=== PATIENT | female | born 1980 | race Caucasian/White ===

== ENCOUNTER 2016-02-25 15:04 | Emergency (ER) | payer SELFPAY ==
[~2016-02-25] VITALS: Ht 162.6 cm; Wt 59.0 kg
[~2016-02-25 15:04] MED LIST: CHLO10CA2 PO; RANI150T PO; TRAM50TA PO; ZOFR4TAB3 SL
[2016-02-25 15:07] VITALS: BP 140/49; PULSE 99; RESP 16; TEMP 98.4; O2SAT 96
[2016-02-25] MEDS ORDERED: IBUPROFEN 600 MG TAB PO ONE (15:30)
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
--- NOTE | 2016-02-25 15:51 | RADHPO ---
EXAM DATE/TIME: 02/25/2016 15:30 [facility] COMPARISON: No previous studies available for comparison. INDICATIONS : Fall last night, cephalgia. RADIATION DOSE: 64.40 CTDIvol (mGy) MEDICAL HISTORY : Hypertension. SURGICAL HISTORY : None. ENCOUNTER: Initial ACUITY: 1 day PAIN SCALE: 5/10 LOCATION: Bilateral head TECHNIQUE: Multiple contiguous axial images were obtained of the head. Using automated exposure control and adj ustment of the mA and/or kV according to patient size, radiation dose was kept as low as reasonably a chievable to obtain optimal diagnostic quality images. FINDINGS: CEREBRUM: The ventricles are normal for age. No evidence of midline shift, mass lesion, hemorrhage or acute in farction. No extra-axial fluid collections are seen. POSTERIOR FOSSA: The cerebellum and brainstem are intact. The 4th ventricle is midline. The cerebellopontine angle i s unremarkable. EXTRACRANIAL: The visualized portion of the orbits is intact. SKULL: The calvaria is intact. No evidence of skull fracture. Minimal ethmoid sinus disease is evident. CONCLUSION: 1. Negative for acute process. Keyur León MD FACR on February 25, 2016 at 15:49 Board Certified Radiologist. This report was verified electronically.
--- NOTE | 2016-02-25 16:33 | RADHPO ---
EXAM DATE/TIME: 02/25/2016 15:47 [facility] COMPARISON: No previous studies available for comparison. INDICATIONS : Fell on back last night MEDICAL HISTORY : None. SURGICAL HISTORY : None. ENCOUNTER: Initial ACUITY: 1 day PAIN SCORE: 10/10 LOCATION: Bilateral low back FINDINGS: There is minimal loss of disc space height at L5-S1. The remainder of the disc spaces and vertebral body heights are well preserved. Alignment is anatomic. CONCLUSION: Minimal loss of disc space height at L5-S1. Keyur León MD FACR on February 25, 2016 at 16:25 Board Certified Radiologist. This report was verified electronically.
== END 2016-02-25 17:05 | disposition home or self-care (01) ==
LOC: PHEFT 15:04
DX: S39.012A Strain of muscle, fascia and tendon of lower back, initial encounter (principal); F10.129 Alcohol abuse with intoxication, unspecified; I10 Essential (primary) hypertension; J45.909 Unspecified asthma, uncomplicated; W03.XXXA Other fall on same level due to collision with another person, initial encounter; Y93.89 Activity, other specified; Y92.89 Other specified places as the place of occurrence of the external cause
CPT/HCPCS: 70450; 72100

== ENCOUNTER 2016-06-13 19:40 | Emergency (ER) | payer SELFPAY ==
[~2016-06-13] VITALS: Ht 170.2 cm; Wt 65.0 kg
[2016-06-13 19:43] VITALS: BP 136/90; PULSE 110; RESP 14; TEMP 98.7; O2SAT 97
[2016-06-13 21:10] VITALS: BP 133/86; PULSE 98; RESP 14; O2SAT 97
[2016-06-13] MEDS ORDERED: ALUMINUM/MAGNESIUM/SIMETH 30 ML CUP PO ONE (21:15)
[2016-06-13] MEDS ORDERED: SODIUM CHLORIDE 0.9% FLUSH 10 ML FLUSH IV FLUSH PRN (21:15)
[2016-06-13] MEDS ORDERED: LIDOCAINE VISCOUS 2% SOLN 15 ML UDC PO ONE (21:15)
[2016-06-13] MEDS ORDERED: ONDANSETRON HCL 4 MG/2 ML VIAL IVP ONE (21:15)
[2016-06-13] MEDS ORDERED: HYDROmorphone HCL PF 1 MG/ML VIAL IV PUSH ONE (21:15)
[2016-06-13] MEDS ORDERED: SODIUM CHLOR 0.9% 1000 ML INJ 1,000 ML IV SCH (21:15)
--- NOTE | 2016-06-13 21:18 | PD ---
HPI Chief Complaint: Abdominal Pain Time Seen by Provider: 21:11 Travel History International Travel<30 days: No Contact w/Intl Traveler<30days: No Traveled to known affect area: No History of Present Illness HPI 35-year-old female here for evaluation of epigastric abdominal pain and possible pancreatitis. She denies history of hepatitis C and alcoholism. She states that she had stopped drinking for quite some time, however about a week ago had an , and started drinking again. She states that she drinks a few vodka drinks a day. History of cholecystectomy. Pain described as sharp, constant, epigastric, worse with movement and palpation. She feels nauseous but has not vomited. No fever. PFSH Past Medical History Asthma: Yes Anxiety: Yes Depression: No Heart Rhythm Problems: No Cancer: No Cardiovascular Problems: Yes Diabetes: No Endocrine: No Gastrointestinal Disorders: Yes Genitourinary: Yes Hepatitis: Yes (hepatitis C) Hypertension: Yes Immune Disorder: No Musculoskeletal: No Neurologic: No Psychiatric: Yes Reproductive: Yes ("STILLBORN AT 8 MONTHS: FIRST " CERCLAGE: 21 WEEKS , 2ND IUP) Respiratory: Yes Pancreatitis: Yes Thyroid Disease: No Ulcer: Yes : 2 Para: 1 Miscarriage: 1 Dilation and Curettage (D&C): Yes Past Surgical History Abdominal Surgery: Yes (PANCREATIC STENT, CHOLECYSTECTOMY) Cardiac Surgery: No Cholecystectomy: Yes Ear Surgery: No Endocrine Surgery: No Eye Surgery: No Genitourinary Surgery: No Gynecologic Surgery: Yes (D &C) Oral Surgery: No Thoracic Surgery: Yes (BREAST IMPLANTS) Other Surgery: Yes (breast implants, pancreatic stent ) Social History Alcohol Use: Yes (daily ) Tobacco Use: No Substance Use: No Allergies-Medications (Allergen,Severity, Reaction): Coded Allergies: Amoxicillin (Verified Allergy, Intermediate, Rash, 06/13/16) Celexa (Verified Allergy, Intermediate, Rash, 06/13/16) Morphine (Verified Allergy, Intermediate, Rash, 06/13/16) Reported Meds & Prescriptions Reported Meds & Active Scripts Active No Active Prescriptions or Reported Medications Review of Systems Except as stated in HPI: all other systems reviewed are Neg Physical Exam Narrative GENERAL: Well-developed, well-nourished, comfortable, no acute distress. SKIN: Focused skin assessment warm/dry. No rash. HEAD: Atraumatic. Normocephalic. EYES: Pupils equal and round. No scleral icterus. No injection or drainage. ENT: Mucous membranes pink and moist. NECK: Trachea midline. No JVD. CARDIOVASCULAR: Regular rate and rhythm. No murmur appreciated. RESPIRATORY: No accessory muscle use. Clear to auscultation. Breath sounds equal bilaterally. GASTROINTESTINAL: Abdomen soft, nondistended. Moderate epigastric tenderness without peritoneal signs. Rest of abdomen is soft and nontender. Normal bowel sounds. MUSCULOSKELETAL: No obvious deformities. No clubbing. No cyanosis. No edema. NEUROLOGICAL: Awake and alert. No obvious cranial nerve deficits. Motor grossly within normal limits. Normal speech. PSYCHIATRIC: Appropriate mood and affect; insight and judgment normal. Data Data Last Documented VS Vital Signs Date Time Temp Pulse Resp B/P Pulse Ox O2 Delivery O2 Flow Rate FiO2 06/13/16 21:10 98 14 133/86 97 Room Air 06/13/16 19:43 98.7 Orders Complete Blood Count With Diff (06/13/16 21:15) Comprehensive Metabolic Panel (06/13/16 21:15) Lipase (06/13/16 21:15) Prothrombin Time / Inr (Pt) (06/13/16 21:15) Act Partial Throm Time (Ptt) (06/13/16 21:15) Urinalysis - C+S If Indicated (06/13/16 21:15) Iv Access Insert/Monitor (06/13/16 21:15) Ecg Monitoring (06/13/16 21:15) Oximetry (06/13/16 21:15) Ondansetron Inj (Zofran Inj) (06/13/16 21:15) Sodium Chlor 0.9% 1000 Ml Inj (Ns 1000 M (06/13/16 21:15) Sodium Chloride 0.9% Flush (Ns Flush) (06/13/16 21:15) Al-Mag Hy-Si 40-40-4 Mg/Ml Liq (Mag-Al P (06/13/16 21:15) Lidocaine 2% Viscous (Xylocaine 2% Visco (06/13/16 21:15) Hydromorphone Pf Inj (Dilaudid Pf Inj) (06/13/16 21:15) Alcohol (Ethanol) (06/13/16 21:16) Electrocardiogram (06/13/16 21:17) Ckmb (Isoenzyme) Profile (06/13/16 21:17) Troponin I (06/13/16 21:17) CKMB (06/13/16 21:34) CKMB% (06/13/16 21:34) Labs Laboratory Tests Test 06/13/16 06/13/16 21:34 22:50 White Blood Count 10.2 TH/MM3 Red Blood Count 4.47 MIL/MM3 Hemoglobin 14.5 GM/DL Hematocrit 42.3 % Mean Corpuscular Volume 94.6 FL Mean Corpuscular Hemoglobin 32.4 PG Mean Corpuscular Hemoglobin 34.2 % Concent Red Cell Distribution Width 13.4 % Platelet Count 334 TH/MM3 Mean Platelet Volume 6.6 FL Neutrophils (%) (Auto) 54.5 % Lymphocytes (%) (Auto) 34.9 % Monocytes (%) (Auto) 6.0 % Eosinophils (%) (Auto) 3.6 % Basophils (%) (Auto) 1.0 % Neutrophils # (Auto) 5.6 TH/MM3 Lymphocytes # (Auto) 3.6 TH/MM3 Monocytes # (Auto) 0.6 TH/MM3 Eosinophils # (Auto) 0.4 TH/MM3 Basophils # (Auto) 0.1 TH/MM3 CBC Comment DIFF FINAL Differential Comment Prothrombin Time 10.2 SEC Prothromb Time International 0.9 RATIO Ratio Activated Partial 24.4 SEC Thromboplast Time Urine Color YELLOW Urine Turbidity CLEAR Urine pH 5.5 Urine Specific Ellis 1.021 Urine Protein NEG mg/dL Urine Glucose (UA) NEG mg/dL Urine Ketones NEG mg/dL Urine Occult Blood NEG Urine Nitrite NEG Urine Bilirubin NEG Urine Urobilinogen LESS THAN 2.0 MG/DL Urine Leukocyte Esterase NEG Urine RBC LESS THAN 1 /hpf Urine WBC LESS THAN 1 /hpf Urine Squamous Epithelial <1 /hpf Cells Urine Mucus FEW /lpf Microscopic Urinalysis Comment CULT NOT INDICATED Total Creatine Kinase 250 U/L Creatine Kinase MB 3.7 NG/ML Creatine Kinase MB % 1.5 % Troponin I LESS THAN 0.02 NG/ML Ethyl Alcohol Level 280 MG/DL Sodium Level 143 MEQ/L Potassium Level 4.6 MEQ/L Chloride Level 108 MEQ/L Carbon Dioxide Level 24.3 MEQ/L Anion Gap 11 MEQ/L Blood Urea Nitrogen 15 MG/DL Creatinine 0.83 MG/DL Estimat Glomerular Filtration 77 ML/MIN Rate Random Glucose 99 MG/DL Calcium Level 8.0 MG/DL Total Bilirubin 0.6 MG/DL Aspartate Amino Transf 384 U/L (AST/SGOT) Alanine Aminotransferase 399 U/L (ALT/SGPT) Alkaline Phosphatase 86 U/L Total Protein 7.5 GM/DL Albumin 3.5 GM/DL Lipase 158 U/L [facility] Medical Decision Making Medical Screen Exam Complete: Yes Emergency Medical Condition: Yes Medical Record Reviewed: Yes Differential Diagnosis Pancreatitis, peptic ulcer disease, hepatobiliary disease, gastritis, ACS Narrative Course Vital signs reviewed. CBC is remarkable. CMP is remarkable for AST 384, ALT 399 which is close to her baseline. She has history of hepatitis C as well as alcohol abuse. Cardiac enzymes are negative. Lipase is 158. Patient was made aware of all findings. She tells me she is feeling a lot better after receiving GI cocktail, IV Protonix, IV morphine, and a liter of normal saline. She tells me she wants to be discharged home. 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 She is requesting a medication that might help her through alcohol withdrawals. I told her I would give her prescription for Librium. I do not believe her pain is cardiac in nature. Her EKG is nonischemic. This is most likely alcoholic gastritis. She is stable for discharge home with outpatient follow- up with a primary care physician this week. She was informed on when to return to the emergency department. She verbalizes understanding and agreement with plan. Diagnosis Primary Impression: Gastritis Qualified Code: K29.20 - Acute alcoholic gastritis without hemorrhage Additional Impressions: Alcohol intoxication Qualified Code: F10.120 - Alcohol intoxication, uncomplicated Transaminitis Referrals: Primary Care Physician 3 days Additional Instructions: Follow-up with a primary care physician this week. Return to the emergency department for worsening symptoms or any other concerns. Scripts Chlordiazepoxide 10 Mg Cap10 Mg PO QID PRN (Anxiety) #30 CAP Ref 0 Prov:Magdiel Stokes MD 06/13/16 Ondansetron Odt (Zofran Odt)4 Mg Tab4 Mg SL Q6HR PRN (Nausea/Vomiting) #30 TAB Ref 0 Prov:Magdiel Stokes MD 06/13/16 Pantoprazole (Protonix)40 Mg Tab40 Mg PO DAILY #30 TAB Ref 3 Prov:Magdiel Stokes MD 06/13/16 Disposition: 01 DISCHARGE HOME Condition: Stable Magdiel Stokes MD June 13, 2016 21:18
[2016-06-13 22:07] LABS: BLOOD, URINE NEG (NEG); COMMENT (UR) CULT NOT INDICATED; CULTURE IF INDICATED CULT NOT INDICATED; GLUCOSE,URINE NEG (NEG); KETONE, URINE NEG (NEG); MUCUS URINE FEW /lpf (OCC); NITRITE,URINE NEG (NEG); PH, URINE 5.5 (5.0-8.5); SQUAMOUS EPITHELIAL CELL URINE <1 /hpf (0-5); URINE COLOR YELLOW (YELLW/STRAW)
[2016-06-13 22:08] LABS: AUTOMATED NEUTROPHIL # 5.6 TH/MM3 (1.8-7.7); BASOPHIL # 0.1 TH/MM3 (0-0.2); EOSINOPHIL # 0.4 TH/MM3 (0-0.4); EOSINOPHIL % 3.6 % (0.0-4.0); HEMATOCRIT 42.3 % (35.0-46.0); HEMO FLAGS DIFF FINAL; LYMPH % 34.9 % (9.0-44.0); LYMPHOCYTE # 3.6 TH/MM3 (1.0-4.8); MEAN CELL VOLUME 94.6 FL (80.0-100.0); MEAN CORPUSCULAR HEMOGLOBIN 32.4 PG (27.0-34.0); MEAN CORPUSCULAR HGB CONC 34.2 % (32.0-36.0); NEUT % 54.5 % (16.0-70.0); PLATELET COUNT 334 TH/MM3 (150-450); RED BLOOD COUNT 4.47 MIL/MM3 (4.00-5.30); RED CELL DISTRIBUTION WIDTH 13.4 % (11.6-17.2); WHITE BLOOD COUNT 10.2 TH/MM3 (4.0-11.0)
[2016-06-13 22:21] LABS: APTT (PATIENT) 24.4 SEC (24.3-30.1); INTERNATIONAL NORMALIZED RATIO 0.9 RATIO; PROTHROMBIN TIME - PATIENT 10.2 SEC (9.8-11.6)
[2016-06-13 23:19] LABS: ALKALINE PHOSPHATASE 86 U/L (45-117); TOTAL BILIRUBIN ADULT 0.6 MG/DL (0.2-1.0)
[2016-06-13 23:20] LABS: ALT (GPT) 399 U/L (10-53); ANION GAP 11 MEQ/L (5-15); AST (GOT) 384 U/L (15-37); BICARBONATE 24.3 MEQ/L (21.0-32.0); BLOOD UREA NITROGEN 15 MG/DL (7-18); CHLORIDE 108 MEQ/L (98-107); GLOMERULAR FILTRATION RATE 77 ML/MIN (>89); POTASSIUM 4.6 MEQ/L (3.5-5.1); SODIUM (NA) 143 MEQ/L (136-145)
[2016-06-13 23:30] LABS: CREATINE KINASE 250 U/L (26-192)
[2016-06-13 23:43] LABS: CKMB 3.7 NG/ML (0.5-3.6)
[2016-06-13] MEDS ORDERED: PROT40TA PO (23:56)
[2016-06-13] MEDS ORDERED: CHLO10CA2 PO (23:56)
[2016-06-13] MEDS ORDERED: ZOFR4TAB3 SL (23:56)
--- NOTE | 2016-06-14 15:31 | EKG ---
Date Performed: 06/13/2016 Time Performed: 22:01:27 PTAGE: 35 years EKG: Sinus rhythm NORMAL ECG NO PREVIOUS TRACING DOCTOR: Sylvain Branham Interpretating Date/Time 06/14/2016 15:27:50
== END 2016-06-14 00:23 | disposition home or self-care (01) ==
LOC: NEPE 19:40
DX: K29.20 Alcoholic gastritis without bleeding (principal); F10.120 Alcohol abuse with intoxication, uncomplicated; R74.0 Nonspecific elevation of levels of transaminase and lactic acid dehydrogenase [LDH]; J45.909 Unspecified asthma, uncomplicated; I10 Essential (primary) hypertension
CPT/HCPCS: 80053; 80307; 81001; 82550; 82552; 83690; 84484; 85025; 85610; 85730; 93005; 96361; 96374; 96375; 99284; J1170; J2405; J7030

== ENCOUNTER 2016-06-20 11:03 | Emergency (ER) | payer SELFPAY ==
[~2016-06-20] VITALS: Ht 162.6 cm; Wt 59.0 kg
[~2016-06-20 11:03] MED LIST changes: +PROT40TA PO; -RANI150T PO; -TRAM50TA PO
[2016-06-20 11:06] VITALS: BP 147/91; PULSE 93; RESP 16; TEMP 97.6
[2016-06-20] MEDS ORDERED: SODIUM CHLOR 0.9% 1000 ML INJ 1,000 ML IV SCH (11:26)
--- NOTE | 2016-06-20 11:29 | PD ---
HPI Chief Complaint: GI Complaint Time Seen by Provider: 11:29 Travel History International Travel<30 days: No Contact w/Intl Traveler<30days: No Traveled to known affect area: No History of Present Illness HPI 35-year-old female presents to the emergency department for evaluation of vomiting and epigastric pain. States pain is constant, sharp, burning. Patient has long-standing history of alcohol dependence. Patient states she did drink alcohol today to help with her abdominal pain. She states she has been vomiting and she noticed blood in it today and yesterday. Denies any recent illnesses, fever, or chills. Denies any chest tightness. No difficulty breathing. Is requesting Dilaudid by name for her epigastric pain. PFSH Past Medical History Asthma: Yes Anxiety: Yes Depression: No Heart Rhythm Problems: No Cancer: No Cardiovascular Problems: Yes Diabetes: No Endocrine: No Gastrointestinal Disorders: Yes Genitourinary: Yes Hepatitis: Yes (hepatitis C) Hypertension: Yes Immune Disorder: No Musculoskeletal: No Neurologic: No Psychiatric: Yes Reproductive: Yes ("STILLBORN AT 8 MONTHS: FIRST " CERCLAGE: 21 WEEKS , 2ND IUP) Respiratory: Yes Immunizations Current: Yes Pancreatitis: Yes Thyroid Disease: No Ulcer: Yes ?: Unknown : 3 Para: 1 Miscarriage: 1 : 1 Dilation and Curettage (D&C): Yes (05/2016) Past Surgical History Abdominal Surgery: Yes (PANCREATIC STENT(REMOVED), CHOLECYSTECTOMY) Cardiac Surgery: No Cholecystectomy: Yes Ear Surgery: No Endocrine Surgery: No Eye Surgery: No Genitourinary Surgery: No Gynecologic Surgery: Yes (D &C) Oral Surgery: No Thoracic Surgery: Yes (BREAST IMPLANTS) Other Surgery: Yes (breast implants, pancreatic stent ) Social History Alcohol Use: Yes Tobacco Use: Yes Substance Use: No Allergies-Medications (Allergen,Severity, Reaction): Coded Allergies: Amoxicillin (Verified Allergy, Intermediate, Rash, 06/13/16) Celexa (Verified Allergy, Intermediate, Rash, 06/13/16) Morphine (Verified Allergy, Intermediate, Rash, 06/13/16) Reported Meds & Prescriptions Reported Meds & Active Scripts Active Chlordiazepoxide (Chlordiazepoxide HCl) 10 Mg Cap 10 Mg PO QID PRN Zofran Odt (Ondansetron Odt) 4 Mg Tab 4 Mg SL Q6HR PRN Protonix (Pantoprazole Sodium) 40 Mg Tab 40 Mg PO DAILY Review of Systems ROS Limitations: Intoxication Except as stated in HPI: all other systems reviewed are Neg Physical Exam Exam Limitations: Intoxication Narrative GENERAL: Tearful female patient, ambulatory and in no acute distress SKIN: Focused skin assessment warm/dry. HEAD: Atraumatic. Normocephalic. EYES: Pupils equal and round. No scleral icterus. No injection or drainage. ENT: No nasal bleeding or discharge. Mucous membranes pink and moist. NECK: Trachea midline. No JVD. CARDIOVASCULAR: Regular rate and rhythm. No murmur appreciated. RESPIRATORY: No accessory muscle use. Clear to auscultation. Breath sounds equal bilaterally. GASTROINTESTINAL: Abdomen soft, non-tender, nondistended. Hepatic and splenic margins not palpable. MUSCULOSKELETAL: No obvious deformities. No clubbing. No cyanosis. No edema. NEUROLOGICAL: Awake and alert. No obvious cranial nerve deficits. Motor grossly within normal limits. Normal speech. Data Data Last Documented VS Vital Signs Date Time Temp Pulse Resp B/P Pulse Ox O2 Delivery O2 Flow Rate FiO2 06/20/16 13:25 77 16 141/75 100 06/20/16 11:06 97.6 Orders Complete Blood Count With Diff (06/20/16:) Comprehensive Metabolic Panel (06/20/16:) Lipase (06/20/16:) Prothrombin Time / Inr (Pt) (06/20/16:) Act Partial Throm Time (Ptt) (06/20/16 11:) Urinalysis - C+S If Indicated (06/20/16:) Iv Access Insert/Monitor (06/20/16:) Ecg Monitoring (06/20/16:) Oximetry (06/20/16:) Ondansetron Inj (Zofran Inj) (06/20/16 11:30) Sodium Chlor 0.9% 1000 Ml Inj (Ns 1000 M (06/20/16:) Sodium Chloride 0.9% Flush (Ns Flush) (06/20/16 11:30) Al-Mag Hy-Si 40-40-4 Mg/Ml Liq (Mag-Al P (06/20/16 11:30) Lidocaine 2% Viscous (Xylocaine 2% Visco (06/20/16 11:30) Ed Urine Pregnancytest Poc (06/20/16 11:26) Pantoprazole Inj (Protonix Inj) (06/20/16 11:30) Alcohol (Ethanol) (06/20/16 11:29) Labs Laboratory Tests Test 06/20/16 06/20/16 11:14 11:30 White Blood Count 4.9 TH/MM3 Red Blood Count 4.36 MIL/MM3 Hemoglobin 14.1 GM/DL Hematocrit 40.6 % Mean Corpuscular Volume 92.9 FL Mean Corpuscular Hemoglobin 32.3 PG Mean Corpuscular Hemoglobin 34.8 % Concent Red Cell Distribution Width 13.4 % Platelet Count 245 TH/MM3 Mean Platelet Volume 6.8 FL Neutrophils (%) (Auto) 45.7 % Lymphocytes (%) (Auto) 33.9 % Monocytes (%) (Auto) 11.6 % Eosinophils (%) (Auto) 6.7 % Basophils (%) (Auto) 2.1 % Neutrophils # (Auto) 2.3 TH/MM3 Lymphocytes # (Auto) 1.7 TH/MM3 Monocytes # (Auto) 0.6 TH/MM3 Eosinophils # (Auto) 0.3 TH/MM3 Basophils # (Auto) 0.1 TH/MM3 CBC Comment DIFF FINAL Differential Comment Prothrombin Time 10.4 SEC Prothromb Time International 0.9 RATIO Ratio Activated Partial 27.6 SEC Thromboplast Time Sodium Level 142 MEQ/L Potassium Level 3.8 MEQ/L Chloride Level 105 MEQ/L Carbon Dioxide Level 27.7 MEQ/L Anion Gap 9 MEQ/L Blood Urea Nitrogen 10 MG/DL Creatinine 0.68 MG/DL Estimat Glomerular Filtration 97 ML/MIN Rate Random Glucose 87 MG/DL Calcium Level 8.7 MG/DL Total Bilirubin 1.8 MG/DL Aspartate Amino Transf 519 U/L (AST/SGOT) Alanine Aminotransferase 390 U/L (ALT/SGPT) Alkaline Phosphatase 102 U/L Total Protein 7.6 GM/DL Albumin 3.8 GM/DL Lipase 129 U/L Ethyl Alcohol Level 271 MG/DL Urine Color YELLOW Urine Turbidity CLEAR Urine pH 7.0 Urine Specific [place] 1.006 Urine Protein NEG mg/dL Urine Glucose (UA) NEG mg/dL Urine Ketones NEG mg/dL Urine Occult Blood NEG Urine Nitrite NEG Urine Bilirubin NEG Urine Urobilinogen 2.0 MG/DL Urine Leukocyte Esterase NEG Urine WBC LESS THAN 1 /hpf Urine Squamous Epithelial 1 /hpf Cells Microscopic Urinalysis Comment CULT NOT INDICATED MDM Medical Decision Making Medical Screen Exam Complete: Yes Emergency Medical Condition: Yes Medical Record Reviewed: Yes Differential Diagnosis Gastritis versus esophageal varices versus abdominal pain versus liver disease versus electrolyte abnormality versus intoxication Narrative Course 35-year-old female presents to the emergency department for evaluation. Patient appears intoxicated. She is tearful. Her abdominal exam is benign. Patient has not vomited since being in the emergency department. I requested if she does that any sample be Hemoccult tested however the patient does not vomit while here. CBC is without acute concern. CMP is with total bilirubin 1.8, AST 519, ALT 390. EtOH is 270 This is an increase from previous however the patient has had elevated-like pattern. This is likely secondary to chronic alcohol abuse and I spoke in depth with the patient about the risk of her continued drinking. I discussed the patient my attending physician Dr. Neumann. The patient will be discharged home to follow-up with primary care provider area she is encouraged to seek gastroenterology evaluation. She agrees to return immediately with any acute worsening of symptoms. 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 Additional Impressions: Epigastric pain Acute alcoholic liver disease Transaminitis Referrals: [facility] (Out patient) [facility] Primary Care Physician Patient Instructions: Alcohol Dependence (ED), Cirrhosis (ED), General Instructions Additional Instructions: It is important that you stop drinking alcohol Utilize outpatient resources to assist in stopping Follow-up with a primary care provider Continue Protonix as already prescribed Return immediately with any acute worsening of symptoms Med/Other Pt SpecificInfo: No Change to Meds Disposition: 01 DISCHARGE HOME Condition: Stable Altamirano,Emily JOYNER June 20, 2016 11:29
[2016-06-20] MEDS ORDERED: SODIUM CHLORIDE 0.9% FLUSH 10 ML FLUSH IV FLUSH PRN (11:30)
[2016-06-20] MEDS ORDERED: LIDOCAINE VISCOUS 2% SOLN 15 ML UDC PO ONE (11:30)
[2016-06-20] MEDS ORDERED: PANTOPRAZOLE SODIUM 40 MG VIAL IV PUSH ONE (11:30)
[2016-06-20] MEDS ORDERED: ALUMINUM/MAGNESIUM/SIMETH 30 ML CUP PO ONE (11:30)
[2016-06-20] MEDS ORDERED: ONDANSETRON HCL 4 MG/2 ML VIAL IVP ONE (11:30)
[2016-06-20 11:37] VITALS: O2SAT 100
[2016-06-20 12:03] LABS: AUTOMATED NEUTROPHIL # 2.3 TH/MM3 (1.8-7.7); BASOPHIL # 0.1 TH/MM3 (0-0.2); BASOPHIL % 2.1 % (0.0-2.0); EOSINOPHIL # 0.3 TH/MM3 (0-0.4); EOSINOPHIL % 6.7 % (0.0-4.0); HEMATOCRIT 40.6 % (35.0-46.0); HEMO FLAGS DIFF FINAL; LYMPH % 33.9 % (9.0-44.0); LYMPHOCYTE # 1.7 TH/MM3 (1.0-4.8); MEAN CELL VOLUME 92.9 FL (80.0-100.0); MEAN CORPUSCULAR HEMOGLOBIN 32.3 PG (27.0-34.0); MEAN CORPUSCULAR HGB CONC 34.8 % (32.0-36.0); MONO % 11.6 % (0.0-8.0); NEUT % 45.7 % (16.0-70.0); PLATELET COUNT 245 TH/MM3 (150-450); RED BLOOD COUNT 4.36 MIL/MM3 (4.00-5.30); RED CELL DISTRIBUTION WIDTH 13.4 % (11.6-17.2); WHITE BLOOD COUNT 4.9 TH/MM3 (4.0-11.0)
[2016-06-20 12:09] LABS: BLOOD, URINE NEG (NEG); COMMENT (UR) CULT NOT INDICATED; CULTURE IF INDICATED CULT NOT INDICATED; GLUCOSE,URINE NEG (NEG); KETONE, URINE NEG (NEG); NITRITE,URINE NEG (NEG); SQUAMOUS EPITHELIAL CELL URINE 1 /hpf (0-5); URINE COLOR YELLOW (YELLW/STRAW)
[2016-06-20 12:14] LABS: APTT (PATIENT) 27.6 SEC (24.3-30.1); INTERNATIONAL NORMALIZED RATIO 0.9 RATIO; PROTHROMBIN TIME - PATIENT 10.4 SEC (9.8-11.6)
[2016-06-20 12:23] LABS: ALT (GPT) 390 U/L (10-53); ANION GAP 9 MEQ/L (5-15); AST (GOT) 519 U/L (15-37); BICARBONATE 27.7 MEQ/L (21.0-32.0); BLOOD UREA NITROGEN 10 MG/DL (7-18); CHLORIDE 105 MEQ/L (98-107); GLOMERULAR FILTRATION RATE 97 ML/MIN (>89); POTASSIUM 3.8 MEQ/L (3.5-5.1); SODIUM (NA) 142 MEQ/L (136-145)
[2016-06-20 12:25] LABS: ALKALINE PHOSPHATASE 102 U/L (45-117); TOTAL BILIRUBIN ADULT 1.8 MG/DL (0.2-1.0)
[2016-06-20 13:25] VITALS: BP 141/75
== END 2016-06-20 13:40 | disposition home or self-care (01) ==
LOC: NEPD 11:03
DX: K29.70 Gastritis, unspecified, without bleeding (principal); K70.10 Alcoholic hepatitis without ascites; R74.0 Nonspecific elevation of levels of transaminase and lactic acid dehydrogenase [LDH]; B19.20 Unspecified viral hepatitis C without hepatic coma; I10 Essential (primary) hypertension; Z72.0 Tobacco use
CPT/HCPCS: 80053; 80307; 81001; 83690; 84703; 85025; 85610; 85730; 96374; 96375; 99284; C9113; J2405; J7030

== ENCOUNTER 2016-06-30 19:41 | Observation (INO) | payer SELFPAY ==
[2016-06-30 19:43] VITALS: BP 171/105; PULSE 132; RESP 22; TEMP 98.7; O2SAT 97
[2016-06-30] MEDS ORDERED: CREO3000 PO (20:10)
[2016-06-30] MEDS ORDERED: SODIUM CHLOR 0.9% 1000 ML INJ 1,000 ML IV SCH ×2 (20:37)
--- NOTE | 2016-06-30 20:42 | PD ---
HPI Chief Complaint: Abdominal Pain Time Seen by Provider: 20:30 Travel History International Travel<30 days: No Contact w/Intl Traveler<30days: No Traveled to known affect area: No History of Present Illness HPI 35-year-old female with history of alcohol abuse, hepatitis C presents for evaluation of epigastric abdominal pain. Symptoms initially started 2 weeks ago , worsened today which prompted evaluation. She reports over the past 3 days she has been at a facility called [facility] for alcohol detoxification. When she was discharged today she drank some 4 loco to try to help with her abdominal pain. The pain is a sharp pain which is constant. She endorses some nausea. Denies vomiting, chest pain or shortness of breath, flank pain, dysuria , vaginal discharge. History of cholecystectomy. History of pancreatitis. No other complaints. PFSH Past Medical History Asthma: Yes Anxiety: Yes Depression: No Heart Rhythm Problems: No Cancer: No Cardiovascular Problems: Yes Diabetes: No Endocrine: No Gastrointestinal Disorders: Yes Genitourinary: Yes Hepatitis: Yes (hepatitis C) Hypertension: Yes Immune Disorder: No Musculoskeletal: No Neurologic: No Psychiatric: Yes Reproductive: Yes ("STILLBORN AT 8 MONTHS: FIRST " CERCLAGE: 21 WEEKS , 2ND IUP) Respiratory: Yes Immunizations Current: Yes Pancreatitis: Yes Thyroid Disease: No Ulcer: Yes ?: Not : 3 Para: 1 Miscarriage: 1 : 1 Dilation and Curettage (D&C): Yes (05/2016) Past Surgical History Abdominal Surgery: Yes (PANCREATIC STENT(REMOVED), CHOLECYSTECTOMY) Cardiac Surgery: No Cholecystectomy: Yes Ear Surgery: No Endocrine Surgery: No Eye Surgery: No Genitourinary Surgery: No Gynecologic Surgery: Yes (D &C) Oral Surgery: No Thoracic Surgery: Yes (BREAST IMPLANTS) Other Surgery: Yes (breast implants, pancreatic stent ) Social History Alcohol Use: Yes Tobacco Use: Yes Substance Use: No Allergies-Medications (Allergen,Severity, Reaction): Coded Allergies: Amoxicillin (Verified Allergy, Intermediate, Rash, 06/30/16) Celexa (Verified Allergy, Intermediate, Rash, 06/30/16) Morphine (Verified Allergy, Intermediate, Rash, 06/30/16) Reported Meds & Prescriptions Reported Meds & Active Scripts Active Reported Creon (Pancrelipase) 3,000-9,500-15,000 Units Cap 2 Cap PO TIDPC Review of Systems Except as stated in HPI: all other systems reviewed are Neg Physical Exam Narrative GENERAL: Well-developed well-nourished female who appears anxious and uncomfortable on initial examination. She does have slurred speech. She is tachycardic in triage. SKIN: Warm and dry. HEAD: Atraumatic. Normocephalic. EYES: Pupils equal and round. No scleral icterus. No injection or drainage. ENT: No nasal bleeding or discharge. Mucous membranes pink and moist. NECK: Trachea midline. No JVD. CARDIOVASCULAR: Regular rate and rhythm. No murmur appreciated. RESPIRATORY: No accessory muscle use. Clear to auscultation. Breath sounds equal bilaterally. GASTROINTESTINAL: Abdomen soft, epigastric tenderness to palpation without guarding or abdominal distention. No tenderness to palpation in lower quadrants. No CVA tenderness. MUSCULOSKELETAL: No obvious deformities. No edema. NEUROLOGICAL: Awake and alert. No obvious cranial nerve deficits. Motor grossly within normal limits. Slurred speech Data Data Last Documented VS Vital Signs Date Time Temp Pulse Resp B/P Pulse Ox O2 Delivery O2 Flow Rate FiO2 07/01/16 00:00 88 18 120/75 97 Room Air 06/30/16 21:14 98.9 Orders Complete Blood Count With Diff (06/30/16 20:37) Comprehensive Metabolic Panel (06/30/16 20:37) Lipase (06/30/16 20:37) Urinalysis - C+S If Indicated (06/30/16 20:37) Iv Access Insert/Monitor (06/30/16 20:37) Ecg Monitoring (06/30/16 20:37) Oximetry (06/30/16 20:37) Ondansetron Inj (Zofran Inj) (06/30/16 20:45) Pantoprazole Inj (Protonix Inj) (06/30/16 20:45) Sodium Chlor 0.9% 1000 Ml Inj (Ns 1000 M (06/30/16 20:37) Sodium Chloride 0.9% Flush (Ns Flush) (06/30/16 20:45) Electrocardiogram (06/30/16 20:37) Al-Mag Hy-Si 40-40-4 Mg/Ml Liq (Mag-Al P (06/30/16 20:45) Lidocaine 2% Viscous (Xylocaine 2% Visco (06/30/16 20:45) Sodium Chlor 0.9% 1000 Ml Inj (Ns 1000 M (06/30/16 20:37) Alcohol (Ethanol) (06/30/16 20:39) Hydromorphone Pf Inj (Dilaudid Pf Inj) (06/30/16 20:45) Ed Urine Pregnancytest Poc (06/30/16 20:45) Ct Abd/Pel W Iv Contrast(Rout) (06/30/16 22:06) Iohexol 350 Inj (Omnipaque 350 Inj) (06/30/16 22:53) Hydromorphone Pf Inj (Dilaudid Pf Inj) (07/01/16 01:00) Admit Order (Ed Use Only) (07/01/16 01:22) Consult Gastroenterology (07/01/16 01:24) Labs Laboratory Tests Test 06/30/16 06/30/16 20:54 21:26 White Blood Count 5.4 TH/MM3 Red Blood Count 4.57 MIL/MM3 Hemoglobin 14.3 GM/DL Hematocrit 42.6 % Mean Corpuscular Volume 93.4 FL Mean Corpuscular Hemoglobin 31.4 PG Mean Corpuscular Hemoglobin 33.6 % Concent Red Cell Distribution Width 13.6 % Platelet Count 150 TH/MM3 Mean Platelet Volume 7.4 FL Neutrophils (%) (Auto) 56.2 % Lymphocytes (%) (Auto) 25.7 % Monocytes (%) (Auto) 13.8 % Eosinophils (%) (Auto) 2.7 % Basophils (%) (Auto) 1.6 % Neutrophils # (Auto) 3.0 TH/MM3 Lymphocytes # (Auto) 1.4 TH/MM3 Monocytes # (Auto) 0.7 TH/MM3 Eosinophils # (Auto) 0.1 TH/MM3 Basophils # (Auto) 0.1 TH/MM3 CBC Comment DIFF FINAL Differential Comment Sodium Level 139 MEQ/L Potassium Level 4.5 MEQ/L Chloride Level 106 MEQ/L Carbon Dioxide Level 23.2 MEQ/L Anion Gap 10 MEQ/L Blood Urea Nitrogen 7 MG/DL Creatinine 0.87 MG/DL Estimat Glomerular Filtration 73 ML/MIN Rate Random Glucose 80 MG/DL Calcium Level 8.8 MG/DL Total Bilirubin 1.1 MG/DL Aspartate Amino Transf 450 U/L (AST/SGOT) Alanine Aminotransferase 452 U/L (ALT/SGPT) Alkaline Phosphatase 138 U/L Total Protein 7.9 GM/DL Albumin 3.9 GM/DL Lipase 519 U/L Ethyl Alcohol Level 211 MG/DL Urine Color LIGHT-YELLOW Urine Turbidity CLEAR Urine pH 6.0 Urine Specific [place] 1.001 Urine Protein NEG mg/dL Urine Glucose (UA) NEG mg/dL Urine Ketones NEG mg/dL Urine Occult Blood NEG Urine Nitrite NEG Urine Bilirubin NEG Urine Urobilinogen LESS THAN 2.0 MG/DL Urine Leukocyte Esterase NEG Microscopic Urinalysis Comment CULT NOT INDICATED MDM Medical Decision Making Medical Screen Exam Complete: Yes Emergency Medical Condition: Yes Medical Record Reviewed: Yes Differential Diagnosis Gastritis, pancreatitis, Nadeem Kyree syndrome, ulcer disease, bowel perforation Narrative Course IV established, basic lab work ordered, the patient was given IV fluids, nausea medicine, pain medicine. She will be monitored closely. Laboratory imaging studies have been reviewed. Her tachycardia improved significantly. Her lab work is notable for elevated liver enzymes which are at baseline in the 400 range. Her lipase is mildly elevated at 519. Alcohol level 211. Upon reexamination she continues to have persistent epigastric pain. Therefore CT of the abdomen and pelvis has been ordered. Signed out at the end of my shift pending CT imaging. Scripts Ondansetron (Zofran)4 Mg Tab4 Mg PO Q6HR PRN (NAUSEA OR VOMITING) #10 TAB Ref 0 Prov:Giovanni Maldonado 07/03/16 Pantoprazole (Protonix)40 Mg Tab40 Mg PO DAILY #30 TAB Ref 3 Prov:Giovanni Maldonado 07/03/16 Oxycodone 5 Mg Tab5 Mg PO Q6HR PRN (PAIN SCALE 6-10) #28 TAB Prov:Cesar Young MD 07/03/16 Stanley Herrera June 30, 2016 20:42
[2016-06-30] MEDS ORDERED: ONDANSETRON HCL 4 MG/2 ML VIAL IVP ONE (20:45)
[2016-06-30] MEDS ORDERED: PANTOPRAZOLE SODIUM 40 MG VIAL IVP ONE (20:45)
[2016-06-30] MEDS ORDERED: ALUMINUM/MAGNESIUM/SIMETH 30 ML CUP PO ONE (20:45)
[2016-06-30] MEDS ORDERED: SODIUM CHLORIDE 0.9% FLUSH 10 ML FLUSH IV FLUSH PRN (20:45)
[2016-06-30] MEDS ORDERED: HYDROmorphone HCL PF 1 MG/ML VIAL IV PUSH ONE (20:45)
[2016-06-30] MEDS ORDERED: LIDOCAINE VISCOUS 2% SOLN 15 ML UDC PO ONE (20:45)
[2016-06-30 21:07] VITALS: O2SAT 99
[2016-06-30 21:11] LABS: BASOPHIL # 0.1 TH/MM3 (0-0.2); BASOPHIL % 1.6 % (0.0-2.0); EOSINOPHIL # 0.1 TH/MM3 (0-0.4); EOSINOPHIL % 2.7 % (0.0-4.0); HEMATOCRIT 42.6 % (35.0-46.0); HEMO FLAGS DIFF FINAL; LYMPH % 25.7 % (9.0-44.0); LYMPHOCYTE # 1.4 TH/MM3 (1.0-4.8); MEAN CELL VOLUME 93.4 FL (80.0-100.0); MEAN CORPUSCULAR HEMOGLOBIN 31.4 PG (27.0-34.0); MEAN CORPUSCULAR HGB CONC 33.6 % (32.0-36.0); MONO % 13.8 % (0.0-8.0); NEUT % 56.2 % (16.0-70.0); PLATELET COUNT 150 TH/MM3 (150-450); RED BLOOD COUNT 4.57 MIL/MM3 (4.00-5.30); RED CELL DISTRIBUTION WIDTH 13.6 % (11.6-17.2); WHITE BLOOD COUNT 5.4 TH/MM3 (4.0-11.0)
[2016-06-30 21:14] VITALS: BP 165/88; PULSE 89; RESP 20; TEMP 98.9; O2SAT 98
[2016-06-30 21:29] LABS: ANION GAP 10 MEQ/L (5-15)
[2016-06-30 21:33] LABS: ALKALINE PHOSPHATASE 138 U/L (45-117); ALT (GPT) 452 U/L (10-53); AST (GOT) 450 U/L (15-37); BICARBONATE 23.2 MEQ/L (21.0-32.0); BLOOD UREA NITROGEN 7 MG/DL (7-18); CHLORIDE 106 MEQ/L (98-107); GLOMERULAR FILTRATION RATE 73 ML/MIN (>89); SODIUM (NA) 139 MEQ/L (136-145); TOTAL BILIRUBIN ADULT 1.1 MG/DL (0.2-1.0)
[2016-06-30 21:40] LABS: POTASSIUM 4.5 MEQ/L (3.5-5.1)
[2016-06-30 21:47] LABS: BLOOD, URINE NEG (NEG); GLUCOSE,URINE NEG (NEG); KETONE, URINE NEG (NEG); NITRITE,URINE NEG (NEG); URINE COLOR LIGHT-YELLOW (YELLW/STRAW)
[2016-06-30 21:52] LABS: COMMENT (UR) CULT NOT INDICATED; CULTURE IF INDICATED CULT NOT INDICATED
[2016-06-30] MEDS ORDERED: IOHEXOL 350 MG/ML 10 ML VIAL (for RAD DIAG) IV ONE (22:53)
--- NOTE | 2016-06-30 23:18 | RADRPT ---
EXAM DATE/TIME: 06/30/2016 22:50 [facility] COMPARISON: CT ABDOMEN & PELVIS W CONTRAST, February 02, 2016, 18:11. INDICATIONS : Right sided abdominal pain. Pancreatitis. IV CONTRAST: 95 cc Omnipaque 350 (iohexol) IV ORAL CONTRAST: No oral contrast ingested. RADIATION DOSE: 6.30 CTDIvol (mGy) MEDICAL HISTORY : Pancreatitis. Hypertension. Hepatitis C.Asthma. SURGICAL HISTORY : Cholecystectomy. ENCOUNTER: Initial ACUITY: 1 day PAIN SCALE: 10/10 LOCATION: Right upper quadrant TECHNIQUE: Volumetric scanning of the abdomen and pelvis was performed. Using automated exposure control and ad justment of the mA and/or kV according to patient size, radiation dose was kept as low as reasonably achievable to obtain optimal diagnostic quality images. FINDINGS: CT Abdomen: The liver, spleen, pancreas, kidneys, adrenals are unremarkable. There is no evidence for any appreciable pathological adenopathy, free fluid, or bowel obstruction. There is evidence for pr ior cholecystectomy. The common bile duct measures 1.5 cm in size with mild dilatation of the intrahe patic ducts and the pancreatic duct measures 5 mm. Common bile duct measured 1.1 cm on the prior exam ination. No definite pancreatic mass is identified, however there appears to be a stricture at the le kya of the Ampula of Vater and the possibility of a subtle mass is difficult to exclude. CT pelvis: There is no evidence for mass, abscess formation, or any significant adenopathy within the pelvis. A tampon is in place the uterus is inhomogeneous with slight nonspecific fluid within the en dometrial cavity and a tiny 1.4 cm cyst in the left ovary. CONCLUSION: Interval development of biliary ductal dilatation and dilation of the pancreatic duct and possible stricture at the level of the Ampula of Vater. Tyson Miramontes MD on June 30, 2016 at 23:10 Board Certified Radiologist. This report was verified electronically.
[2016-07-01] VITALS (7 sets, daily range): BP systolic 110–133; BP diastolic 69–93; PULSE 74–88; RESP 17–20; TEMP 97.8–98.7; O2SAT 96–99
[2016-07-01] MEDS ORDERED: HYDROmorphone HCL PF 1 MG/ML VIAL IV PUSH ONE (01:00)
[2016-07-01] MEDS: SODIUM CHLOR 0.9% 1000 ML INJ 1,000 ML IV SCH ×3 (01:25→20:40)
[2016-07-01] MEDS ORDERED: LORazepam 1 MG TAB PO PRN (01:30)
[2016-07-01] MEDS ORDERED: ONDANSETRON HCL 4 MG/2 ML VIAL IVP PRN (01:30)
[2016-07-01] MEDS ORDERED: LORazepam 2 MG/ML VIAL IV PUSH PRN ×4 (01:30)
[2016-07-01] MEDS ORDERED: HALOPERIDOL LACTATE 5 MG/ML AMP IM PRN (01:30)
[2016-07-01] MEDS ORDERED: LORazepam 2 MG TAB PO PRN (01:30)
[2016-07-01] MEDS ORDERED: SODIUM CHLORIDE 0.9% FLUSH 10 ML FLUSH IV FLUSH PRN (01:30)
[2016-07-01] MEDS ORDERED: BISACODYL 10 MG SUPP RECTAL PRN (01:30)
[2016-07-01] MEDS ORDERED: FLUMAZENIL 0.5 MG/5 ML VIAL IV PUSH PRN (01:30)
--- NOTE | 2016-07-01 03:18 | PD ---
Physical Exam Narrative GENERAL: Well-nourished, well-developed patient. uncomfortable SKIN: Warm and dry. HEAD: Normocephalic and atraumatic. EYES: No injection or drainage. ENT: No nasal drainage noted. NECK: Supple, trachea midline. CARDIOVASCULAR: Regular rate and rhythm RESPIRATORY: no increased effort. No accessory muscle use. GASTROINTESTINAL: Abdomen soft, ttp in epigastric area, nondistended. NEUROLOGICAL: Awake and alert. Moves all extremities. Normal speech. Data Data Last Documented VS Vital Signs Date Time Temp Pulse Resp B/P Pulse Ox O2 Delivery O2 Flow Rate FiO2 07/01/16 00:00 88 18 120/75 97 Room Air 06/30/16 21:14 98.9 Orders Complete Blood Count With Diff (06/30/16 20:37) Comprehensive Metabolic Panel (06/30/16 20:37) Lipase (06/30/16 20:37) Urinalysis - C+S If Indicated (06/30/16 20:37) Iv Access Insert/Monitor (06/30/16 20:37) Ecg Monitoring (06/30/16 20:37) Oximetry (06/30/16 20:37) Ondansetron Inj (Zofran Inj) (06/30/16 20:45) Pantoprazole Inj (Protonix Inj) (06/30/16 20:45) Sodium Chlor 0.9% 1000 Ml Inj (Ns 1000 M (06/30/16 20:37) Sodium Chloride 0.9% Flush (Ns Flush) (06/30/16 20:45) Electrocardiogram (06/30/16 20:37) Al-Mag Hy-Si 40-40-4 Mg/Ml Liq (Mag-Al P (06/30/16 20:45) Lidocaine 2% Viscous (Xylocaine 2% Visco (06/30/16 20:45) Sodium Chlor 0.9% 1000 Ml Inj (Ns 1000 M (06/30/16 20:37) Alcohol (Ethanol) (06/30/16 20:39) Hydromorphone Pf Inj (Dilaudid Pf Inj) (06/30/16 20:45) Ed Urine Pregnancytest Poc (06/30/16 20:45) Ct Abd/Pel W Iv Contrast(Rout) (06/30/16 22:06) Iohexol 350 Inj (Omnipaque 350 Inj) (06/30/16 22:53) Hydromorphone Pf Inj (Dilaudid Pf Inj) (07/01/16 01:00) Admit Order (Ed Use Only) (07/01/16 01:22) Consult Gastroenterology (07/01/16 01:24) Labs Laboratory Tests Test 06/30/16 06/30/16 20:54 21:26 White Blood Count 5.4 TH/MM3 Red Blood Count 4.57 MIL/MM3 Hemoglobin 14.3 GM/DL Hematocrit 42.6 % Mean Corpuscular Volume 93.4 FL Mean Corpuscular Hemoglobin 31.4 PG Mean Corpuscular Hemoglobin 33.6 % Concent Red Cell Distribution Width 13.6 % Platelet Count 150 TH/MM3 Mean Platelet Volume 7.4 FL Neutrophils (%) (Auto) 56.2 % Lymphocytes (%) (Auto) 25.7 % Monocytes (%) (Auto) 13.8 % Eosinophils (%) (Auto) 2.7 % Basophils (%) (Auto) 1.6 % Neutrophils # (Auto) 3.0 TH/MM3 Lymphocytes # (Auto) 1.4 TH/MM3 Monocytes # (Auto) 0.7 TH/MM3 Eosinophils # (Auto) 0.1 TH/MM3 Basophils # (Auto) 0.1 TH/MM3 CBC Comment DIFF FINAL Differential Comment Sodium Level 139 MEQ/L Potassium Level 4.5 MEQ/L Chloride Level 106 MEQ/L Carbon Dioxide Level 23.2 MEQ/L Anion Gap 10 MEQ/L Blood Urea Nitrogen 7 MG/DL Creatinine 0.87 MG/DL Estimat Glomerular Filtration 73 ML/MIN Rate Random Glucose 80 MG/DL Calcium Level 8.8 MG/DL Total Bilirubin 1.1 MG/DL Aspartate Amino Transf 450 U/L (AST/SGOT) Alanine Aminotransferase 452 U/L (ALT/SGPT) Alkaline Phosphatase 138 U/L Total Protein 7.9 GM/DL Albumin 3.9 GM/DL Lipase 519 U/L Ethyl Alcohol Level 211 MG/DL Urine Color LIGHT-YELLOW Urine Turbidity CLEAR Urine pH 6.0 Urine Specific [place] 1.001 Urine Protein NEG mg/dL Urine Glucose (UA) NEG mg/dL Urine Ketones NEG mg/dL Urine Occult Blood NEG Urine Nitrite NEG Urine Bilirubin NEG Urine Urobilinogen LESS THAN 2.0 MG/DL Urine Leukocyte Esterase NEG Microscopic Urinalysis Comment CULT NOT INDICATED MDM Supervised Visit with [facility]: Yes Interpretation(s) CBC & BMP Diagram 06/30/16 20:54 Last 24 hours Impressions Abdomen/Pelvis CT 06/30/166 Signed Impressions: Service Date/Time: Thursday, June 30, 2016 22:50 - CONCLUSION: Interval development of biliary ductal dilatation and dilation of the pancreatic duct and possible stricture at the level of the Ampula of Vater. Tyson Miramontes MD Narrative Course I, Dr. kelly, have reviewed the advance practice practitioner's documentation and am in agreement, met with the patient face to face, made the diagnosis, and the medical decision making was done by me. *My assessment and Findings: 35-year-old female presents with epigastric abdominal pain over the past couple of days. She states she has history of pancreatitis. She does admit to drinking today from the pain. Will follow workup and add on CT scan abdominal pelvis given significant pain CT shows concern for stricture, will discuss with GI and admit Patient agrees to admission Physician Communication Physician Communication dr hamilton states keep npo will likely need ercp dr thompson agrees to admit Diagnosis Primary Impression: Pancreatic duct stricture Additional Impression: Alcohol intoxication Qualified Code: F10.920 - Alcohol intoxication, uncomplicated Admitting Information Admitting Physician Requests: Observation Janis Kelly MD July 01, 2016 03:18
--- NOTE | 2016-07-01 04:00 | HHI.HP ---
HPI Service [facility] Primary Care Physician No Primary Care Physician Admission Diagnosis pancreatic stricture Diagnoses: (1) Pancreatitis Diagnosis: Principal (2) Pancreatic duct stricture Diagnosis: Principal (3) Elevated LFTs Diagnosis: Principal (4) Alcohol abuse Diagnosis: Principal Travel History International Travel<30 Days: No Contact w/Intl Traveler <30 Da: No Traveled to Known Affected Are: No History of Present Illness This is a 35-year-old female with a PMH of Anxiety, Alcohol Abuse, Hepatitis C and Recurrent Pancreatitis who presented to the ER with complaints of severe epigastric pain associated nausea but no vomiting x1 day. States she was [facility] and immediately drank alcohol. Now w/ persistent epigastric pain. Multiple ER presentations for similar symptoms in the past. On arrival, BP 165/88, HR 89, O2 sat 98% on RA, Afebrile. CBC unremarkable. Chemistry unremarkable except for GFR 73. LFTs elevated, similar in comparison to previous labs from 06/20/16. Lipase 519. UA negative. Alcohol 211. CT Abd/Pelvis w/ interval development of biliary ductal dilatation and dilatation of the pancreatic duct and possible stricture at the level of the ampulla of Vater. Dr. Barrera consulted by ER physician, recommended ERCP. Review of Systems Except as stated in HPI: all other systems reviewed are Neg ROS: 14 point review of systems otherwise negative. Past Family Social History Past Medical History PMH: Anxiety, Alcohol Abuse, Hepatitis C and Recurrent Pancreatitis Past Surgical History PAST SURGICAL HISTORY: Pancreatic Stent, Cholecystectomy D&C, Breast Implants Allergies: Coded Allergies: Amoxicillin (Verified Allergy, Intermediate, Rash, 06/30/16) Celexa (Verified Allergy, Intermediate, Rash, 06/30/16) Morphine (Verified Allergy, Intermediate, Rash, 06/30/16) Family History PAST FAMILY HISTORY: Reviewed. No h/o DM or CAD Social History PAST SOCIAL HISTORY: Positive for alcohol abuse. Positive for tobacco. Negative for drugs. Physical Exam Vital Signs Vital Signs Date Time Temp Pulse Resp B/P Pulse Ox O2 Delivery O2 Flow Rate FiO2 07/01/16 03:10 98.0 77 18 133/87 98 07/01/16 00:00 88 18 120/75 97 Room Air 06/30/16 21:14 98.9 89 20 165/88 98 Room Air 06/30/16 21:07 99 Room Air 06/30/16 19:43 98.7 132 22 171/105 97 Room Air Physical Exam PE: GENERAL: Middle-aged white female in no acute distress, acutely intoxicated, seen ambulating without difficulty. HEENT: PERRLA, EOMI. No scleral icterus or conjunctival pallor. No lid lag or facial droop. CARDIOVASCULAR: Regular rate and rhythm. No obvious murmurs to auscultation. No chest tenderness to palpation. RESPIRATORY: No obvious rhonchi or wheezing. Clear to auscultation. Breath sounds equal bilaterally. GASTROINTESTINAL: Abdomen soft, mild generalized tenderness palpation, nondistended. BS normal. MUSCULOSKELETAL: Extremities without clubbing, cyanosis, or edema. No obvious deformities. NEUROLOGICAL: Awake, alert and oriented x4. No focal neurologic deficits. Moving both upper and lower extremities spontaneously. Laboratory Laboratory Tests Test 06/30/16 06/30/16 20:54 21:26 White Blood Count 5.4 Red Blood Count 4.57 Hemoglobin 14.3 Hematocrit 42.6 Mean Corpuscular Volume 93.4 Mean Corpuscular Hemoglobin 31.4 Mean Corpuscular Hemoglobin 33.6 Concent Red Cell Distribution Width 13.6 Platelet Count 150 Mean Platelet Volume 7.4 Neutrophils (%) (Auto) 56.2 Lymphocytes (%) (Auto) 25.7 Monocytes (%) (Auto) 13.8 Eosinophils (%) (Auto) 2.7 Basophils (%) (Auto) 1.6 Neutrophils # (Auto) 3.0 Lymphocytes # (Auto) 1.4 Monocytes # (Auto) 0.7 Eosinophils # (Auto) 0.1 Basophils # (Auto) 0.1 CBC Comment DIFF FINAL Differential Comment Sodium Level 139 Potassium Level 4.5 Chloride Level 106 Carbon Dioxide Level 23.2 Anion Gap 10 Blood Urea Nitrogen 7 Creatinine 0.87 Estimat Glomerular Filtration 73 Rate Random Glucose 80 Calcium Level 8.8 Total Bilirubin 1.1 Aspartate Amino Transf 450 (AST/SGOT) Alanine Aminotransferase 452 (ALT/SGPT) Alkaline Phosphatase 138 Total Protein 7.9 Albumin 3.9 Lipase 519 Ethyl Alcohol Level 211 Urine Color LIGHT-YELLOW Urine Turbidity CLEAR Urine pH 6.0 Urine Specific [place] 1.001 Urine Protein NEG Urine Glucose (UA) NEG Urine Ketones NEG Urine Occult Blood NEG Urine Nitrite NEG Urine Bilirubin NEG Urine Urobilinogen LESS THAN 2.0 Urine Leukocyte Esterase NEG Microscopic Urinalysis Comment CULT NOT INDICATED Result Diagram: 06/30/16205306/30/162053 Assessment and Plan Problem List: (1) Pancreatitis ICD Code: K85.90 Status: Acute (2) Pancreatic duct stricture ICD Code: K86.89 Status: Acute (3) Elevated LFTs ICD Code: R94.5 Status: Acute (4) Alcohol abuse ICD Code: F10.10 Status: Acute Assessment and Plan A/P: 1. Pancreatitis: Recurrent. h/o Pancreatic Stent in the past, non-compliant w / Pancrealipase. Lipase 519, IVF, NPO, analgesics/antiemetics. 2. Pancreatic Stricture: CT Abd/Pelvis w/ interval development of biliary ductal dilatation and dilatation of the pancreatic duct and possible stricture at the level of the ampulla of Vater, images reviewed by me. Dr. Barrera consulted by ER physician, recommended admission for ERCP. Keep NPO, IVF, analgesics as neede.d 3. Elevated LFT's: Chronic. LFTs similar in comparison to previous labs, will monitor. Repeat labs in am. Avoid hepatotoxic meds. 4. Alcohol Abuse: w/ Acute Alcohol Intoxication. Alcohol level 211. [facility]. CIWA, Seizure Precautions, MVT/Thiamine/ Folate replacement. 5. DVT Prophylaxis: SCD/Teds. 6. Social work for d/c planning as needed. 7. Case discussed w/ ER physician at length. Isaura Levin MD July 01, 2016 04:00
[2016-07-01] MEDS: HYDROmorphone HCL PF 1 MG/ML VIAL IV PRN ×4 (04:54→19:54)
[2016-07-01 05:16] LABS: AUTOMATED NEUTROPHIL # 3.5 TH/MM3 (1.8-7.7); BASOPHIL % 0.6 % (0.0-2.0); EOSINOPHIL # 0.2 TH/MM3 (0-0.4); HEMATOCRIT 37.4 % (35.0-46.0); HEMO FLAGS DIFF FINAL; LYMPH % 30.6 % (9.0-44.0); LYMPHOCYTE # 1.8 TH/MM3 (1.0-4.8); MEAN CORPUSCULAR HEMOGLOBIN 31.9 PG (27.0-34.0); MONO % 7.9 % (0.0-8.0); NEUT % 57.9 % (16.0-70.0); PLATELET COUNT 137 TH/MM3 (150-450); RED BLOOD COUNT 3.98 MIL/MM3 (4.00-5.30); RED CELL DISTRIBUTION WIDTH 13.7 % (11.6-17.2)
[2016-07-01 05:43] LABS: BICARBONATE 24.9 MEQ/L (21.0-32.0); CALCIUM-PROTEIN CORRECTED 7.7 MG/DL (8.5-10.1); POTASSIUM 4.1 MEQ/L (3.5-5.1); TOTAL BILIRUBIN ADULT 0.7 MG/DL (0.2-1.0)
--- NOTE | 2016-07-01 08:02 | PD.CONS ---
HPI History of Present Illness This is a 35 year old female with a hx of recurrent pancreatitis related to ETOH abuse (3 episodes in the past over the past year) who presented to the ER for evaluation of nausea/vomiting/abdominal pain. Her symptoms began suddenly about a week ago. She has severe pain in her epigastric area. This is a sharp and stabbing pain that is intermittent and radiates to her left side. She has associated nausea without vomiting. Her symptoms are aggravated by any po intake. Yesterday, she tried to drink some water and felt as if she would feel better if she induced vomiting, but states she only brought a small amount of water back up and it did not help with her symptoms. She denies any fevers or chills. She denies heartburn, reflux. She has some loose stools, but denies any diarrhea. She reports that she had pancreatitis about a year ago and had a stent placed at that time (at this facility). Records show that she had an ERCP with sphincterotomy and balloon sweep (01/01/16) which revealed biliary stricture, s/p sphincterotomy, balloon sweep. She also had a procedure done in [place] at [facility] and states that the stent may have been placed there, but she was told that it must have fallen out. She reports that she quit drinking for about 7 months, but had an a few weeks ago and started drinking again. She then went to detox for this and was released yesterday. She had a glass of wine because of her abdominal pain. She has a hx of HCV, Genotype 3A. She is treatment naive. (Viky Green) PFSH Past Medical History Anxiety Alcohol Abuse Hepatitis C Recurrent Pancreatitis Past Surgical History ERCP with sphincterotomy and balloon sweep Cholecystectomy D&C Breast Implants (Viky Green) Coded Allergies: Amoxicillin (Verified Allergy, Intermediate, Rash, 06/30/16) Celexa (Verified Allergy, Intermediate, Rash, 06/30/16) Morphine (Verified Allergy, Intermediate, Rash, 06/30/16) Medications Allergies Coded Allergies Type Severity Reaction Last Updated Verified Amoxicillin Allergy Intermediate Rash 06/30/16 Yes Celexa Allergy Intermediate Rash 06/30/16 Yes Morphine Allergy Intermediate Rash 06/30/16 Yes Active Scripts Medications Dose Route/Sig Days Date Category Creon (Pancrelipase) 3,000-9,500-15,000 Units Cap 2 Cap PO TIDPC 06/30/16 Reported Protonix (Pantoprazole Sodium) 40 Mg Tab 40 Mg PO DAILY 06/13/16 Rx Family History No family hx of pancreatitis. Social History Positive for alcohol abuse- states she quit for 7 months but recently relapsed. 02/11 PPD Negative for drugs. (Viky Green) Review of Systems Constitutional: COMPLAINS OF: Change in appetite, DENIES: Fever, Weight loss, Chills Respiratory: DENIES: Cough Cardiovascular: DENIES: Chest pain Gastrointestinal: COMPLAINS OF: Abdominal pain, Nausea, DENIES: Black stools, Bloody stools, Constipation, Diarrhea, Vomiting, Heartburn Musculoskeletal: DENIES: Back pain Integumentary: DENIES: Abnormal pigmentation, Rash Hematologic/lymphatic: DENIES: Bruising Neurologic: DENIES: Headache (Viky Green) GI Exam Vitals I&O Vital Signs Date Time Temp Pulse Resp B/P Pulse Ox O2 Delivery O2 Flow Rate FiO2 07/01/16 04:00 98.6 75 18 131/86 99 07/01/16 03:10 98.0 77 18 133/87 98 07/01/16 00:00 88 18 120/75 97 Room Air 06/30/16 21:14 98.9 89 20 165/88 98 Room Air 06/30/16 21:07 99 Room Air 06/30/16 19:43 98.7 132 22 171/105 97 Room Air I/O 06/30/16 06/30/16 06/30/16 07/01/16 07/01/16 07/01/16 07:00 15:00 23:00 07:00 15:00 23:00 Intake Total 220 ml Balance 220 ml Intake Oral 220 ml # Voids 2 # Bowel Movements 0 Imaging Last 24 hours Impressions Abdomen/Pelvis CT 06/30/162205 Signed Impressions: Service Date/Time: Thursday, June 30, 2016 22:50 - CONCLUSION: Interval development of biliary ductal dilatation and dilation of the pancreatic duct and possible stricture at the level of the Ampula of Vater. Tyson Miramontes MD Laboratory Test 06/30/16 06/30/16 07/01/16 20:54 21:26 03:39 White Blood Count 5.4 TH/MM3 6.0 TH/MM3 Red Blood Count 4.57 MIL/MM3 3.98 MIL/MM3 Hemoglobin 14.3 GM/DL 12.7 GM/DL Hematocrit 42.6 % 37.4 % Mean Corpuscular Volume 93.4 FL 94.0 FL Mean Corpuscular Hemoglobin 31.4 PG 31.9 PG Mean Corpuscular Hemoglobin 33.6 % 34.0 % Concent Red Cell Distribution Width 13.6 % 13.7 % Platelet Count 150 TH/MM3 137 TH/MM3 Mean Platelet Volume 7.4 FL 7.6 FL Neutrophils (%) (Auto) 56.2 % 57.9 % Lymphocytes (%) (Auto) 25.7 % 30.6 % Monocytes (%) (Auto) 13.8 % 7.9 % Eosinophils (%) (Auto) 2.7 % 3.0 % Basophils (%) (Auto) 1.6 % 0.6 % Neutrophils # (Auto) 3.0 TH/MM3 3.5 TH/MM3 Lymphocytes # (Auto) 1.4 TH/MM3 1.8 TH/MM3 Monocytes # (Auto) 0.7 TH/MM3 0.5 TH/MM3 Eosinophils # (Auto) 0.1 TH/MM3 0.2 TH/MM3 Basophils # (Auto) 0.1 TH/MM3 0.0 TH/MM3 CBC Comment DIFF FINAL DIFF FINAL Differential Comment Sodium Level 139 MEQ/L 142 MEQ/L Potassium Level 4.5 MEQ/L 4.1 MEQ/L Chloride Level 106 MEQ/L 109 MEQ/L Carbon Dioxide Level 23.2 MEQ/L 24.9 MEQ/L Anion Gap 10 MEQ/L 8 MEQ/L Blood Urea Nitrogen 7 MG/DL 5 MG/DL Creatinine 0.87 MG/DL 0.74 MG/DL Estimat Glomerular Filtration 73 ML/MIN 88 ML/MIN Rate Random Glucose 80 MG/DL 85 MG/DL Calcium Level 8.8 MG/DL 7.4 MG/DL Total Bilirubin 1.1 MG/DL 0.7 MG/DL Aspartate Amino Transf 450 U/L 551 U/L (AST/SGOT) Alanine Aminotransferase 452 U/L 415 U/L (ALT/SGPT) Alkaline Phosphatase 138 U/L 149 U/L Total Protein 7.9 GM/DL 6.5 GM/DL Albumin 3.9 GM/DL 3.3 GM/DL Lipase 519 U/L 307 U/L Ethyl Alcohol Level 211 MG/DL Urine Color LIGHT-YELLOW Urine Turbidity CLEAR Urine pH 6.0 Urine Specific [place] 1.001 Urine Protein NEG mg/dL Urine Glucose (UA) NEG mg/dL Urine Ketones NEG mg/dL Urine Occult Blood NEG Urine Nitrite NEG Urine Bilirubin NEG Urine Urobilinogen LESS THAN 2.0 MG/DL Urine Leukocyte Esterase NEG Microscopic Urinalysis Comment CULT NOT INDICATED Protein Corrected Calcium 7.7 MG/DL Physical Examination HEENT: Normocephalic; atraumatic; no jaundice. CHEST: CTA CARDIAC: RRR ABDOMEN: Soft, nondistended, moderate epigastric tenderness; no hepatosplenomegaly; bowel sounds are present in all four quadrants. EXTREMITIES: No clubbing, cyanosis, or edema. SKIN: Normal; no rash; no jaundice. PV INSTALLER TECH: No focal deficits; alert and oriented times three. (Viky Green) Assessment and Plan Plan ASSESSMENT: - Abdominal pain and nausea with abnormal imaging with biliary ductal dilatation and dilation of the pancreatic duct with possible stricture at the level of the Ampula of Vater. She has a hx of recurrent pancreatitis secondary to ETOH use. She reports that she had pancreatitis about a year ago and had a stent placed at that time (at this facility). ERCP with sphincterotomy and balloon sweep (01/01/16) which revealed biliary stricture, s/p sphincterotomy, balloon sweep. She reports that she then went to [facility] and had a stent placed and was told after another procedure that it had dislodged. She reports a one week hx of nausea/abdominal pain. She does report that she quit drinking for 7 months but recently relapsed about 2 weeks ago. She then went to detox and had one glass of wine yesterday. Abdomen/Pelvis CT (06/30/16)-----> Interval development of biliary ductal dilatation and dilation of the pancreatic duct and possible stricture at the level of the Ampula of Vater. T. Bili 0.7, AST 551, ALT 415, Alk. Phosph 149. Lipase was 519 on admission, 307 today. Will plan for EUS with possible ERCP today. NPO. - Elevated LFTs. EUS/Possible ERCP today. - HCV, Genotype 3A. She is treatment naive. - Anxiety, per primary PLAN: - Plan for EUS with possible ERCP today - Obtain consents - NPO - IVF - PPI - LFT in am - Further recommendations to follow based on results of above - Pt seen and examined by Dr. Sen and myself and this note is written on his behalf (Viky Green) Physician Comments Patient seen and examined Agree with above Patient with elevated liver function tests probably multifactorial alcohol and hep C are certainly part of this but not necessarily explain all the way C Patient was also abdominal pain etiology unclear with the elevation of her lipase possible pancreatitis Known history of biliary stricture etiology unclear We will plan on an EUS and possibly an ERCP Further recommendations shall depend on the findings and hospital course ( Eber Sen MD) Viky Green July 01, 2016 08:02 Eber Sen MD July 01, 2016 11:14
[2016-07-01] MEDS: FOLIC ACID 1 MG TAB PO SCH (09:03)
[2016-07-01] MEDS: MULTIVITAMINS/MINERALS THERAPEUTIC TAB PO SCH (09:03)
[2016-07-01] MEDS: THIAMINE HCL 100 MG TAB PO SCH (09:03)
[2016-07-01] MEDS: SODIUM CHLORIDE 0.9% FLUSH 10 ML FLUSH IV FLUSH SCH ×2 (09:04→19:55)
[2016-07-01] MEDS ORDERED: PROPOFOL 200 MG/20 ML AMP IV ONE (10:37)
[2016-07-01] MEDS ORDERED: IOHEXOL 350 MG/ML 100 ML BTL (for RAD DIAG) OTHER ONE (10:50)
--- NOTE | 2016-07-01 11:24 | RADRPT ---
EXAM DATE/TIME: 07/01/2016 10:55 [place] COMPARISON: No previous studies available for comparison. INDICATIONS : Obstruction. FLUORO TIME: 1.27 minutes IMAGE COUNT: 2 CONTRAST: Instilled by Ordering Physician MEDICAL HISTORY : Pancreatitis. Hypertension. Hepatitis C.Asthma. SURGICAL HISTORY : Cholecystectomy. ENCOUNTER: Initial ACUITY: 1 day PAIN SCORE: Non-responsive. LOCATION: Right upper quadrant FINDINGS: An ERCP was performed by the ordering physician. The images demonstrate a dilated extrahepatic biliary tree with clips present indicating previous cho lecystectomy. No filling defects are clearly seen. On the second of 2 images, there is drainage of co ntrast from the dilated CBD into the duodenum. CONCLUSION: ERCP as above. Clifton Cervantes MD on July 01, 2016 at 11:21 Board Certified Radiologist. This report was verified electronically.
--- NOTE | 2016-07-01 11:26 | PD.PROCEDR ---
GI Procedure REFERRING PHYSICIAN TANVIR PROCEDURE PERFORMED EUS followed by an ERCP INDICATION FOR PROCEDURE Elevated liver function tests elevated lipase and abdominal pain and dilated bile duct PROCEDURE: The procedure, risks and benefits were discussed with Ms. Martinez and informed consent was obtained. Anesthesia sedated her with Diprivan. She was placed in the left lateral decubitus position. EUS: The Pentax videoscope was introduced through the oropharynx and advanced to the second portion of the duodenum. FINDINGS: Endoscopic ultrasound of the pancreatic body and towel reveals normal parenchyma with mildly dilated pancreatic duct all the way through to about 3 mm no masses noted no filling defects Pancreatic head also unremarkable with no mass noted homogeneous parenchyma Ampulla appeared to be unremarkable Dilated common bile duct all the way down to the ampulla to about 1.1 cm no filling defects No lymphadenopathy noted Overall unremarkable EUS of the biliary system and pancreas ERCP: Patient was placed in a prone position. The Pentax videoscope was introduced through the oropharynx and advanced to the second portion of the duodenum where the ampula was identified. FINDINGS: The ampulla noted to have had a prior sphincterotomy were able to obtain easy cannulation of the common bile duct the opening through the ampulla was satisfactory and wide no stricture noted at this point in time no filling defects unable to fill all the common bile duct due to large opening and not enough pressure to fill the whole duct but overall it was unremarkable and at this point the procedure was terminated ESTIMATED BLOOD LOSS: None SPECIMENS REMOVED: None COMPLICATIONS: None IMPRESSION: Dilated common bile duct Mildly dilated pancreatic duct Otherwise unremarkable EUS and unremarkable ERCP PLAN: Supportive care Stop alcohol Clear liquids diet for today Monitor labs Eber Sen MD July 01, 2016 11:26
[2016-07-01] MEDS ORDERED: *HYDROmorphone PF 1 MG VIAL PERIprocedural Use ONLY ONE (11:33)
--- NOTE | 2016-07-01 13:08 | EKG ---
Date Performed: 06/30/2016 Time Performed: 21:34:02 PTAGE: 35 years EKG: Sinus rhythm POSSIBLE LEFT ATRIAL ENLARGEMENT BORDERLINE ECG Left atrial abnormality moved from the prior tracing PREVIOUS TRACING : 06/13/2016 22.01 DOCTOR: Bg Briones Interpretating Date/Time 07/01/2016 13:07:56
[2016-07-01] MEDS: CALCIUM CARBONATE 500 MG CHEWABLE TAB CHEW SCH (19:54)
[2016-07-01] MEDS: PANTOPRAZOLE SODIUM 40 MG VIAL IV PUSH SCH (19:54)
[2016-07-02] MEDS: HYDROmorphone HCL PF 1 MG/ML VIAL IV PRN ×2 (00:50→09:38)
[2016-07-02 04:43] VITALS: BP 132/77; PULSE 60; RESP 17; TEMP 97.3; O2SAT 97
[2016-07-02 07:50] LABS: TOTAL BILIRUBIN ADULT 1.3 MG/DL (0.2-1.0)
[2016-07-02 08:01] VITALS: BP 139/86; PULSE 76; RESP 16; TEMP 98; O2SAT 98
[2016-07-02] MEDS: THIAMINE HCL 100 MG TAB PO SCH (09:38)
[2016-07-02] MEDS: MULTIVITAMINS/MINERALS THERAPEUTIC TAB PO SCH (09:38)
[2016-07-02] MEDS: CALCIUM CARBONATE 500 MG CHEWABLE TAB CHEW SCH ×2 (09:39→20:50)
[2016-07-02] MEDS: FOLIC ACID 1 MG TAB PO SCH (09:39)
[2016-07-02] MEDS: SODIUM CHLORIDE 0.9% FLUSH 10 ML FLUSH IV FLUSH SCH ×2 (09:39→20:50)
[2016-07-02] MEDS: SODIUM CHLOR 0.9% 1000 ML INJ 1,000 ML IV SCH (09:41)
[2016-07-02] MEDS: PANTOPRAZOLE SODIUM 40 MG VIAL IV PUSH SCH ×2 (09:41→20:50)
[2016-07-02 11:30] VITALS: BP 117/85; PULSE 61; RESP 18; TEMP 98; O2SAT 99
[2016-07-02 11:56] LABS: HEMATOCRIT 31.9 % (35.0-46.0); MEAN CELL VOLUME 88.9 FL (80.0-100.0); MEAN CORPUSCULAR HEMOGLOBIN 28.8 PG (27.0-34.0); MEAN CORPUSCULAR HGB CONC 32.5 % (32.0-36.0); PLATELET COUNT 388 TH/MM3 (150-450); RED BLOOD COUNT 3.59 MIL/MM3 (4.00-5.30); RED CELL DISTRIBUTION WIDTH 13.4 % (11.6-17.2); REVIEW FLAG FINAL; WHITE BLOOD COUNT 6.8 TH/MM3 (4.0-11.0)
[2016-07-02] MEDS ORDERED: traMADol HCL 50 MG TAB PO PRN (13:00)
--- NOTE | 2016-07-02 13:02 | HHI.PR ---
Subjective Remarks Follow-up for abdominal pain. The patient continues to complain of epigastric abdominal discomfort, but states it is improving compared to yesterday. She's been tolerating clear liquids with no vomiting. She states she has some nausea yesterday, but none today. She is asking if she can continue on pain medication for the abdominal pain. She would like to stay off of alcohol, which she states she uses for pain control. Objective Vitals Vital Signs Date Time Temp Pulse Resp B/P Pulse Ox O2 Delivery O2 Flow Rate FiO2 07/02/16 11:30 98.0 61 18 117/85 99 07/02/16 08:01 98.0 76 16 139/86 98 07/02/16 04:43 97.3 60 17 132/77 97 07/01/16 23:36 97.8 79 17 115/69 98 07/01/16 19:59 98.3 74 17 110/73 96 07/01/16 15:35 97.9 75 20 132/85 96 I/O 07/01/16 07/01/16 07/01/16 07/02/16 07/02/16 07/02/16 07:00 15:00 23:00 07:00 15:00 23:00 Intake Total 220 ml 350 ml 600 ml Output Total 0 ml 4 ml Balance 220 ml 350 ml 596 ml Intake Oral 220 ml IV Total 50 ml 600 ml Other 300 ml Output Urine Total 0 ml 4 ml Estimated Blood Loss 0 ml # Voids 2 1 # Bowel Movements 0 Result Diagram: 07/02/16 1037 07/01/16 0339 Imaging Last Impressions GI Procedure 07/01/16 0000 Signed Impressions: Service Date/Time: Friday, July 01, 2016 10:55 - CONCLUSION: ERCP as above. Clifton Cervantes MD Abdomen/Pelvis CT 06/30/162205 Signed Impressions: Service Date/Time: Thursday, June 30, 2016 22:50 - CONCLUSION: Interval development of biliary ductal dilatation and dilation of the pancreatic duct and possible stricture at the level of the Ampula of Vater. Tyson Miramontes MD Objective Remarks GENERAL: Well-developed well-nourished. In no acute distress. SKIN: Warm and dry. No lesions noted. HEENT: Normocephalic. Pupils equal and round. Mucous membranes pink and moist. CARDIOVASCULAR: Regular rate and rhythm. No murmur appreciated. RESPIRATORY: No accessory muscle use. Clear to auscultation. Breath sounds equal bilaterally. GASTROINTESTINAL: Abdomen soft, non-tender, nondistended. Bowel sounds x4. MUSCULOSKELETAL: No obvious deformities. No clubbing or cyanosis. No edema. NEUROLOGICAL: Awake and alert. No focal neurological deficits. Moves upper and lower extremities spontaneously. Normal speech. PSYCHIATRIC: Appropriate mood and affect; insight and judgment normal. A/P Problem List: (1) Pancreatitis ICD Code: K85.90 Status: Resolved (2) Pancreatic duct stricture ICD Code: K86.89 Status: Acute (3) Elevated LFTs ICD Code: R94.5 Status: Acute (4) Alcohol abuse ICD Code: F10.10 Status: Chronic Assessment and Plan 35-year-old female with a PMH of Anxiety, Alcohol Abuse, Hepatitis C and Recurrent Pancreatitis who presented with complaints of severe epigastric pain associated nausea Biliary dilation/possible pancreatic stricture/pancreatitis, acute on chronic/ elevated LFTs/Hx of Hep C - passed common bile duct stone? Reviewed: CT Abd/Pelvis w/ interval development of biliary ductal dilatation and dilatation of the pancreatic duct and possible stricture at the level of the ampulla of Vater. Admission bilirubin 1.1, AST 450, ALT 452, alkaline phosphatase 138, lipase 519. Lipase has improved to 139. Significant improvement of AST, ALT, and alkaline phosphatase on repeat labs today. ERCP showed dilated common bile duct, mildly dilated pancreatic duct, otherwise unremarkable EUS and ERCP. AST elevated on review of previous labs. -IVF -Pain control with oral and intravenous narcotics, taper dosing -Antiemetics as needed -Diet per GI, currently on clear liquids -Monitor LFTs Alcohol Abuse: w/ Acute Alcohol Intoxication. Alcohol level 211. Recently [facility] from [facility]. CIWA, Seizure Precautions, MVT/Thiamine/Folate replacement. DVT Prophylaxis: SCD/Teds. Discharge Planning Follow GI recommendations. Possible discharge with outpatient follow-up if cleared by Giovanni Jaeger July 02, 2016 13:02 cleared by Giovanni Jaeger July 02, 2016 13:02
[2016-07-02] MEDS ORDERED: HYDROmorphone HCL PF 1 MG/ML VIAL IV PRN (14:30)
--- NOTE | 2016-07-02 14:35 | HHI.GIFU ---
Subjective Remarks Pt is tearful, says she is having pain still. No vomiting. No appetite. ( Anamika Mitchell) Objective Vitals I&O Vital Signs Date Time Temp Pulse Resp B/P Pulse Ox O2 Delivery O2 Flow Rate FiO2 07/02/16 11:30 98.0 61 18 117/85 99 07/02/16 08:01 98.0 76 16 139/86 98 07/02/16 04:43 97.3 60 17 132/77 97 07/01/16 23:36 97.8 79 17 115/69 98 07/01/16 19:59 98.3 74 17 110/73 96 07/01/16 15:35 97.9 75 20 132/85 96 I/O 07/01/16 07/01/16 07/01/16 07/02/16 07/02/16 07/02/16 06:59 14:59 22:59 06:59 14:59 22:59 Intake Total 220 ml 350 ml 600 ml Output Total 0 ml 4 ml Balance 220 ml 350 ml 596 ml Intake Oral 220 ml IV Total 50 ml 600 ml Other 300 ml Output Urine Total 0 ml 4 ml Estimated Blood Loss 0 ml # Voids 2 1 # Bowel Movements 0 Laboratory Laboratory Tests Test 07/02/16 07/02/16 06:15 10:37 Total Bilirubin 1.3 Direct Bilirubin 0.3 Indirect Bilirubin 1.0 Aspartate Amino Transf 150 (AST/SGOT) Alanine Aminotransferase 259 (ALT/SGPT) Alkaline Phosphatase 114 Total Protein 5.9 Albumin 3.0 Lipase 139 White Blood Count 6.8 Red Blood Count 3.59 Hemoglobin 10.4 Hematocrit 31.9 Mean Corpuscular Volume 88.9 Mean Corpuscular Hemoglobin 28.8 Mean Corpuscular Hemoglobin 32.5 Concent Red Cell Distribution Width 13.4 Platelet Count 388 Mean Platelet Volume 7.8 Imaging Last Impressions GI Procedure 07/01/16 0000 Signed Impressions: Service Date/Time: Friday, July 01, 2016 10:55 - CONCLUSION: ERCP as above. Clifton Cervantes MD Abdomen/Pelvis CT 06/30/162205 Signed Impressions: Service Date/Time: Thursday, June 30, 2016 22:50 - CONCLUSION: Interval development of biliary ductal dilatation and dilation of the pancreatic duct and possible stricture at the level of the Ampula of Vater. Tyson Miramontes MD Physical Exam HEENT: EOMI; normocephalic; atraumatic; no jaundice. CHEST: CTA CARDIAC: RRR ABDOMEN: Soft, nondistended, epigastric TTP; no hepatosplenomegaly; bowel sounds are present in all four quadrants. EXTREMITIES: No clubbing, cyanosis, or edema. SKIN: Normal; no rash; no jaundice. [employer]ILRO[employer] WHEELS [employer] AXLE INSPECTOR: No focal deficits; alert and oriented times three. (Anamika Mitchell) Assessment and Plan Plan ASSESSMENT: - Abdominal pain and nausea with abnormal imaging with biliary ductal dilatation and dilation of the pancreatic duct with possible stricture at the level of the Ampula of Vater. s/p EUS, ERCP --> cilated CBD, mildly dilated pancreatic duct She has a hx of recurrent pancreatitis secondary to ETOH use. She reports that she had pancreatitis about a year ago and had a stent placed at that time (at this facility). ERCP with sphincterotomy and balloon sweep (01/01/16) which revealed biliary stricture, s/p sphincterotomy, balloon sweep. She reports that she then went to [facility] and had a stent placed and was told after another procedure that it had dislodged. She reports a one week hx of nausea/abdominal pain. She does report that she quit drinking for 7 months but recently relapsed about 2 weeks ago. She then went to detox and had one glass of wine yesterday. Abdomen/Pelvis CT (06/30/16)-----> Interval development of biliary ductal dilatation and dilation of the pancreatic duct and possible stricture at the level of the Ampula of Vater. T. Bili 0.7, AST 150, ALT 259, Alk. Phosph 114. Lipase was 519 on admission, 139 today. - Elevated LFTs. - trending down - HCV, Genotype 3A. She is treatment naive. - Anxiety, per primary PLAN: - clears if tolerated - IVF - PPI - supportive care - Pt seen and examined by Dr. Sen and myself and this note is written on his behalf (Anamika Mitchell) Physician Comments Patient seen and examined Agree with above Continue current supportive care Monitor labs No clear etiology for abdominal pain thus far we will check CTA (Eber Sen MD) Anamika Mitchell July 02, 2016 14:35 Eber Sen MD July 02, 2016 19:17
[2016-07-02 15:25] VITALS: BP 159/99; PULSE 67; RESP 23; TEMP 97.8; O2SAT 99
[2016-07-02 19:24] VITALS: BP 152/94; PULSE 62; RESP 20; TEMP 98.3; O2SAT 99
[2016-07-02] MEDS ORDERED: IOHEXOL 350 MG/ML 10 ML VIAL (for RAD DIAG) IV ONE (20:35)
--- NOTE | 2016-07-02 20:47 | RADRPT ---
EXAM DATE/TIME: 07/02/2016 20:06 [facility] COMPARISON: CT ABDOMEN & PELVIS W CONTRAST, June 30, 2016, 22:50. INDICATIONS : Abdominal pain. IV CONTRAST: 80 cc Omnipaque 350 (iohexol) IV ORAL CONTRAST: No oral contrast ingested. RADIATION DOSE: 14.14 CTDIvol (mGy) MEDICAL HISTORY : Pancreatitis. Hepatitis C. SURGICAL HISTORY : Cholecystectomy. ENCOUNTER: Subsequent ACUITY: 3 days PAIN SCALE: 7/10 LOCATION: Right abdomen. TECHNIQUE: Volumetric scanning was performed using a multi-row detector CT scanner. The data was post processed with a variety of visualization algorithms including full volume maximum intensity projection, multi -planar sliding thin slab reformation, curved planar reformation, and surface rendering techniques. Using automated exposure control and adjustment of the mA and/or kV according to patient size, radiat ion dose was kept as low as reasonably achievable to obtain optimal diagnostic quality images. FINDINGS: ABDOMINAL AORTA: The lumen is smooth without significant narrowing or aneurismal dilation. The proximal celiac and sup erior mesenteric arteries are patent and normal in diameter. There are 2 renal arteries bilaterally without gross abnormality. BIFURCATION: Normal. RIGHT PELVIS: The right common iliac, internal iliac and external iliac vessels are patent without luminal irregula rity. LEFT PELVIS: The left common iliac, internal iliac and external iliac vessels are patent and without luminal irreg ularity. CONCLUSION: Unremarkable exam. Sina Bryant MD on July 02, 2016 at 20:42 Board Certified Radiologist. This report was verified electronically.
[2016-07-02 23:56] VITALS: BP 141/96; PULSE 60; RESP 20; TEMP 97.9; O2SAT 96
[2016-07-03 04:54] VITALS: BP 129/78; PULSE 61; RESP 22; TEMP 98; O2SAT 98
[2016-07-03 05:08] LABS: AUTOMATED NEUTROPHIL # 2.5 TH/MM3 (1.8-7.7); BASOPHIL % 0.7 % (0.0-2.0); EOSINOPHIL # 0.2 TH/MM3 (0-0.4); EOSINOPHIL % 4.1 % (0.0-4.0); HEMO FLAGS DIFF FINAL; LYMPH % 42.7 % (9.0-44.0); LYMPHOCYTE # 2.4 TH/MM3 (1.0-4.8); MEAN CELL VOLUME 92.8 FL (80.0-100.0); MEAN CORPUSCULAR HEMOGLOBIN 32.1 PG (27.0-34.0); MEAN CORPUSCULAR HGB CONC 34.6 % (32.0-36.0); MONO % 8.2 % (0.0-8.0); NEUT % 44.3 % (16.0-70.0); PLATELET COUNT 154 TH/MM3 (150-450); RED BLOOD COUNT 4.09 MIL/MM3 (4.00-5.30); RED CELL DISTRIBUTION WIDTH 13.5 % (11.6-17.2); WHITE BLOOD COUNT 5.7 TH/MM3 (4.0-11.0)
[2016-07-03 05:39] LABS: ALKALINE PHOSPHATASE 117 U/L (45-117); ALT (GPT) 232 U/L (10-53); ANION GAP 6 MEQ/L (5-15); AST (GOT) 88 U/L (15-37); BLOOD UREA NITROGEN 3 MG/DL (7-18); CHLORIDE 103 MEQ/L (98-107); GLOMERULAR FILTRATION RATE 93 ML/MIN (>89); POTASSIUM 3.6 MEQ/L (3.5-5.1); SODIUM (NA) 139 MEQ/L (136-145); TOTAL BILIRUBIN ADULT 0.9 MG/DL (0.2-1.0)
[2016-07-03] MEDS ORDERED: OXYC-392 PO (08:05)
[2016-07-03] MEDS ORDERED: PROT40TA PO (08:17)
[2016-07-03] MEDS ORDERED: ZOFR4TAB PO (08:21)
--- NOTE | 2016-07-03 08:22 | HHI.DS ---
Discharge Summary Admission Date July 01, 2016 at 01:24 Discharge Date: July 03, 2016 Admitting Diagnosis pancreatic stricture (1) Pancreatitis ICD Code: K85.90 Diagnosis: Principal (2) Pancreatic duct stricture ICD Code: K86.89 Diagnosis: Principal (3) Elevated LFTs ICD Code: R94.5 Diagnosis: Principal (4) Alcohol abuse ICD Code: F10.10 Diagnosis: Secondary Procedures ERCP and endoscopic ultrasound 07/01/16 Brief History - From Admission This is a 35-year-old female with a PMH of Anxiety, Alcohol Abuse, Hepatitis C and Recurrent Pancreatitis who presented to the ER with complaints of severe epigastric pain associated nausea but no vomiting x1 day. States she was [facility] yesterday and immediately drank alcohol. Now w/ persistent epigastric pain. Multiple ER presentations for similar symptoms in the past. On arrival, BP 165/88, HR 89, O2 sat 98% on RA, Afebrile. CBC unremarkable. Chemistry unremarkable except for GFR 73. LFTs elevated, similar in comparison to previous labs from 06/20/16. Lipase 519. UA negative. Alcohol 211. CT Abd/Pelvis w/ interval development of biliary ductal dilatation and dilatation of the pancreatic duct and possible stricture at the level of the ampulla of Vater. Dr. Barrera consulted by ER physician, recommended ERCP. CBC/BMP: 07/03/16 0405 07/03/16 0405 Significant Findings Laboratory Tests Test 06/30/16 06/30/16 07/01/16 07/02/16 20:54 21:26 03:39 06:15 Monocytes (%) (Auto) 13.8 % (0.0-8.0) Estimat Glomerular Filtration 73 ML/MIN (>89) 88 ML/MIN (>89) Rate Total Bilirubin 1.1 MG/DL 1.3 MG/DL (0.2-1.0) (0.2-1.0) Aspartate Amino Transf 450 U/L (15-37) 551 U/L (15-37) 150 U/L (15-37) (AST/SGOT) Alanine Aminotransferase 452 U/L (10-53) 415 U/L (10-53) 259 U/L (10-53) (ALT/SGPT) Alkaline Phosphatase 138 U/L 149 U/L (45-117) (45-117) Lipase 519 U/L (73-393) Ethyl Alcohol Level 211 MG/DL (0-5) Urine Specific [place] 1.001 (1.002-1.035) Red Blood Count 3.98 MIL/MM3 (4.00-5.30) Platelet Count 137 TH/MM3 (150-450) Chloride Level 109 MEQ/L (98-107) Blood Urea Nitrogen 5 MG/DL (7-18) Calcium Level 7.4 MG/DL (8.5-10.1) Protein Corrected Calcium 7.7 MG/DL (8.5-10.1) Albumin 3.3 GM/DL 3.0 GM/DL (3.4-5.0) (3.4-5.0) Direct Bilirubin 0.3 MG/DL (0.0-0.2) Indirect Bilirubin 1.0 MG/DL (0.0-0.8) Total Protein 5.9 GM/DL (6.4-8.2) Test 07/02/16 07/03/16 10:37 04:05 Red Blood Count 3.59 MIL/MM3 (4.00-5.30) Hemoglobin 10.4 GM/DL (11.6-15.3) Hematocrit 31.9 % (35.0-46.0) Monocytes (%) (Auto) 8.2 % (0.0-8.0) Eosinophils (%) (Auto) 4.1 % (0.0-4.0) Blood Urea Nitrogen 3 MG/DL (7-18) Aspartate Amino Transf 88 U/L (15-37) (AST/SGOT) Alanine Aminotransferase 232 U/L (10-53) (ALT/SGPT) Total Protein 6.3 GM/DL (6.4-8.2) Albumin 3.3 GM/DL (3.4-5.0) Imaging Last Impressions Abdomen/Pelvis CT 07/02/16 0000 Signed Impressions: Service Date/Time: Saturday, July 02, 2016 20:06 - CONCLUSION: Unremarkable exam. Sina Bryant MD GI Procedure 07/01/16 0000 Signed Impressions: Service Date/Time: Friday, July 01, 2016 10:55 - CONCLUSION: ERCP as above. Clifton Cervantes MD PE at Discharge GENERAL: Well-developed well-nourished. In no acute distress. SKIN: Warm and dry. No lesions noted. HEENT: Normocephalic. Pupils equal and round. Mucous membranes pink and moist. CARDIOVASCULAR: Regular rate and rhythm. No murmur appreciated. RESPIRATORY: No accessory muscle use. Clear to auscultation. Breath sounds equal bilaterally. GASTROINTESTINAL: Abdomen soft, non-tender, nondistended. Bowel sounds x4. MUSCULOSKELETAL: No obvious deformities. No clubbing or cyanosis. No edema. NEUROLOGICAL: Awake and alert. No focal neurological deficits. Moves upper and lower extremities spontaneously. Normal speech. PSYCHIATRIC: Appropriate mood and affect; insight and judgment normal. Pt update on day of discharge Sleeping upon arrival. The patient states that she did have some burning epigastric discomfort yesterday that was improved with pain medication. She states she has some nausea, but no vomiting and she was able to tolerate liquid diet. Hospital Course 35-year-old female with a PMH of Anxiety, Alcohol Abuse, Hepatitis C and Recurrent Pancreatitis who presented with complaints of severe epigastric pain associated nausea Biliary dilation/possible pancreatic stricture/pancreatitis, acute on chronic/ elevated LFTs/Hx of Hep C - passed common bile duct stone? Reviewed: CT Abd/Pelvis w/ interval development of biliary ductal dilatation and dilatation of the pancreatic duct and possible stricture at the level of the ampulla of Vater. Admission bilirubin 1.1, AST 450, ALT 452, alkaline phosphatase 138, lipase 519. Lipase has improved to 139. Significant improvement of AST, ALT, and alkaline phosphatase on repeat labs. ERCP showed dilated common bile duct, mildly dilated pancreatic duct, otherwise unremarkable EUS and ERCP. AST elevated on review of previous labs. Abdominal CTA unremarkable. -Pain control with short course of oxycodone -Zofran as needed -Advance diet as tolerated -GI consulted, cleared for discharge and outpatient follow-up -PPI -Continue home pancrelipase Pt Condition on Discharge: Stable Discharge Disposition: Discharge Home Discharge Time: > 30 minutes Discharge Instructions DIET: Follow Instructions for: Heart Healthy Diet, Full Liquid Diet, Clear Liquid Diet Additional Diet Instructions: Advance diet as tolerated Activities you can perform: Regular-No Restrictions Follow up Referrals: Gastroenterology - 2 Weeks with Eber Sen MD PCP Follow-up - 1 Week New Medications: Ondansetron (Zofran) 4 Mg Tab 4 MG PO Q6HR PRN NAUSEA OR VOMITING #10 Ref 0 TAB Oxycodone (Oxycodone) 5 Mg Tab 5 MG PO Q6HR PRN PAIN SCALE 6-10 #28 TAB Continued Medications: Pancrelipase (Creon) 3,000-9,500-15,000 Units Cap 2 CAP PO TIDPC Digestive Aid #90 Ref 0 CAP Pantoprazole (Protonix) 40 Mg Tab 40 MG PO DAILY Reflux #30 Ref 3 TAB (This prescription has been renewed) Giovanni Maldonado July 03, 2016 08:22
[2016-07-03 08:26] VITALS: BP 142/87; PULSE 77; RESP 16; TEMP 97.8; O2SAT 97
[2016-07-03] MEDS: THIAMINE HCL 100 MG TAB PO SCH (08:44)
[2016-07-03] MEDS: CALCIUM CARBONATE 500 MG CHEWABLE TAB CHEW SCH (08:44)
[2016-07-03] MEDS: FOLIC ACID 1 MG TAB PO SCH (08:44)
[2016-07-03] MEDS: MULTIVITAMINS/MINERALS THERAPEUTIC TAB PO SCH (08:45)
[2016-07-03] MEDS: SODIUM CHLORIDE 0.9% FLUSH 10 ML FLUSH IV FLUSH SCH (08:45)
[2016-07-03] MEDS: PANTOPRAZOLE SODIUM 40 MG VIAL IV PUSH SCH (08:45)
== END 2016-07-03 12:20 | disposition home or self-care (01) ==
LOC: NEPC 19:41 → NEDA 07-01 01:24 → NEPGCP 07-01 02:52
PROVIDERS: ADMIT Internal Medicine; ATTEND Internal Medicine
DX: K85.90 Acute pancreatitis without necrosis or infection, unspecified (principal); K83.8 Other specified diseases of biliary tract; F41.9 Anxiety disorder, unspecified; B19.20 Unspecified viral hepatitis C without hepatic coma; R79.89 Other specified abnormal findings of blood chemistry; F10.10 Alcohol abuse, uncomplicated; I10 Essential (primary) hypertension; F17.200 Nicotine dependence, unspecified, uncomplicated; Z98.890 Other specified postprocedural states; Z88.1 Allergy status to other antibiotic agents; Z88.5 Allergy status to narcotic agent; Z88.8 Allergy status to other drugs, medicaments and biological substances; J45.909 Unspecified asthma, uncomplicated; Y90.7 Blood alcohol level of 200-239 mg/100 ml
CPT/HCPCS: 43259; 43260; 74174; 74177; 74330; 80053; 80076; 80307; 81001; 82948; 83690; 84703; 85025; 85027; 93005; 96361; 96374; 96375; 99285; C1769; C9113; J1170; J2405; J7030; Q9967; G0378

== ENCOUNTER 2016-12-11 12:28 | Emergency (ER) | payer OTHER ==
[~2016-12-11] VITALS: Ht 162.6 cm; Wt 60.0 kg
[~2016-12-11 12:28] MED LIST changes: -CHLO10CA2 PO; +CREO3000 PO; +OXYC-392 PO; +ZOFR4TAB PO; -ZOFR4TAB3 SL
[2016-12-11 12:29] VITALS: BP 122/86; PULSE 97; RESP 20; TEMP 98.4; O2SAT 94
[2016-12-11] MEDS ORDERED: VENTAER INH (12:55)
[2016-12-11] MEDS ORDERED: ALBUAER3 INH (12:55)
--- NOTE | 2016-12-11 12:59 | PD ---
HPI Chief Complaint: Respiratory Distress Time Seen by Provider: 12:50 Travel History International Travel<30 days: No Contact w/Intl Traveler<30days: No Traveled to known affect area: No History of Present Illness HPI 36-year-old female with history of asthma presents for evaluation of wheezing and dyspnea. She reports that yesterday morning she went running in the air was cold. Since then she has been wheezing and feeling short of breath. She reports that typically when she ran she uses her albuterol inhaler and hasn't with her however she did not bring it with her during this run. Since then she has been using her albuterol inhaler but the symptoms have persisted which prompted evaluation. She endorses a slight cough. Denies fevers, chills, recent travel. She has no other complaints at this time. [facility] Past Medical History Asthma: Yes Blood Disorders: No Anxiety: Yes Depression: No Heart Rhythm Problems: No Cancer: No Cardiovascular Problems: No Diabetes: No Diminished Hearing: No Endocrine: No Gastrointestinal Disorders: Yes Genitourinary: No Hepatitis: Yes (hepatitis C) Hypertension: Yes Immune Disorder: No Musculoskeletal: No Neurologic: No Psychiatric: Yes Reproductive: No Respiratory: Yes (asthma) Immunizations Current: Yes Pancreatitis: Yes Thyroid Disease: No Ulcer: Yes : 3 Para: 1 Miscarriage: 1 : 1 Dilation and Curettage (D&C): Yes (05/2016) Past Surgical History Abdominal Surgery: Yes (PANCREATIC STENT(REMOVED), CHOLECYSTECTOMY) Cardiac Surgery: No Cholecystectomy: Yes Ear Surgery: No Endocrine Surgery: No Eye Surgery: No Genitourinary Surgery: No Gynecologic Surgery: Yes (D &C) Oral Surgery: No Thoracic Surgery: Yes (BREAST IMPLANTS) Other Surgery: Yes (breast implants, pancreatic stent ) Social History Alcohol Use: Yes Tobacco Use: Yes Substance Use: No Allergies-Medications (Allergen,Severity, Reaction): Coded Allergies: amoxicillin (Unverified Allergy, Intermediate, Rash, 12/11/16) citalopram (Unverified Allergy, Intermediate, Rash, 12/11/16) morphine (Unverified Allergy, Intermediate, Rash, 12/11/16) Reported Meds & Prescriptions Reported Meds & Active Scripts Active Prednisone 20 Mg Tab 20 Mg PO BID 5 Days Reported Proair Hfa 8.5 GM Inh (Albuterol Sulfate) 90 Mcg/Act Aer 2 Puff INH Q4HR PRN 108 mcg/actuation Ventolin Hfa 18 GM Inh (Albuterol Sulfate) 90 Mcg/Act Aer 2 Puff INH Q4H PRN Review of Systems Except as stated in HPI: all other systems reviewed are Neg Physical Exam Narrative GENERAL: Well-developed well-nourished female in no acute distress SKIN: Warm and dry. HEAD: Atraumatic. Normocephalic. EYES: Pupils equal and round. No scleral icterus. No injection or drainage. ENT: No nasal bleeding or discharge. Mucous membranes pink and moist. NECK: Trachea midline. No JVD. CARDIOVASCULAR: Regular rate and rhythm. No murmur appreciated. RESPIRATORY: No accessory muscle use. Slight wheezing, somewhat diminished breath sounds bilaterally. Data Data Last Documented VS Vital Signs Date Time Temp Pulse Resp B/P (MAP) Pulse Ox O2 Delivery O2 Flow Rate FiO2 12/11/16 13:04 67 99 Room Air 12/11/16 12:29 98.4 20 Orders Orders Albuterol-Ipratropium Neb (Duoneb Neb) (12/11/16 13:00) Prednisone (Deltasone) (12/11/16 13:00) Ed Discharge Order (12/11/16 14:03) [facility] Medical Decision Making Medical Screen Exam Complete: Yes Emergency Medical Condition: Yes Medical Record Reviewed: Yes Differential Diagnosis Exercise-induced asthma, spontaneous pneumothorax, bronchitis Narrative Course The patient's examination and history are consistent with an asthma exacerbation. She will be given a DuoNeb therapy and prednisone. The patient feels improved after the administration of DuoNeb therapy. She'll be discharged with a short course of prednisone to use in conjunction with her albuterol inhaler. Diagnosis Primary Impression: Asthma exacerbation Qualified Codes: J45.901 - Unspecified asthma with (acute) exacerbation Additional Instructions: Medication as prescribed. Albuterol inhaler as needed for breakthrough wheezing. Return for any emergent medical conditions. Med/Other Pt SpecificInfo: Prescription(s) given Scripts Prednisone (Prednisone) 20 Mg Tab 20 MG PO BID for 5 Days, #10 TAB 0 Refills Prov: Kayla Tate MD 12/11/16 Disposition: 01 DISCHARGE HOME Condition: Stable Stanley Herrera Dec 11, 2016 12:59
[2016-12-11] MEDS ORDERED: predniSONE 20 MG TAB PO ONE (13:00)
[2016-12-11 13:04] VITALS: PULSE 67; O2SAT 99
[2016-12-11] MEDS: RESP: ALBUTEROL 2.5 MG/IPRATROPIUM 0.5 MG NEB (SCH) INH ×2 (13:17→13:18)
[2016-12-11] MEDS ORDERED: PRED20 PO (13:37)
== END 2016-12-11 14:42 | disposition home or self-care (01) ==
LOC: NEPK 12:28
DX: J45.901 Unspecified asthma with (acute) exacerbation (principal); F41.9 Anxiety disorder, unspecified; I10 Essential (primary) hypertension; K85.90 Acute pancreatitis without necrosis or infection, unspecified; Z72.0 Tobacco use; Z79.899 Other long term (current) drug therapy; Z88.0 Allergy status to penicillin; Z86.19 Personal history of other infectious and parasitic diseases; Z88.5 Allergy status to narcotic agent
CPT/HCPCS: 94640; 94664; 99285; J7512

== ENCOUNTER 2017-02-24 17:50 | Emergency (ER) | payer OTHER ==
[~2017-02-24] VITALS: Ht 162.6 cm; Wt 59.1 kg
[~2017-02-24 17:50] MED LIST changes: +ALBUAER3 INH; -CREO3000 PO; -OXYC-392 PO; +PRED20 PO; -PROT40TA PO; +VENTAER INH; -ZOFR4TAB PO
[2017-02-24 17:52] VITALS: BP 128/94; PULSE 81; RESP 18; TEMP 98.7; O2SAT 99
[2017-02-24] MEDS ORDERED: AZIT250T3 PO (18:13)
[2017-02-24] MEDS ORDERED: ALBUAER3 INH (18:13)
[2017-02-24] MEDS ORDERED: PRED20 PO (18:13)
--- NOTE | 2017-02-24 18:13 | PD ---
HPI Chief Complaint: Respiratory Symptoms Time Seen by Provider: 17:59 Travel History International Travel<30 days: No Contact w/Intl Traveler<30days: No Traveled to known affect area: No History of Present Illness HPI This is a 36-year-old female with history of asthma here for evaluation of a productive cough 10 days. She is reporting colored phlegm. Subjective fevers. She is also reporting wheezing and requesting refill of her albuterol inhaler. Severity is moderate. No aggravating or alleviating factors. PFSH Past Medical History Asthma: Yes Blood Disorders: No Anxiety: Yes Depression: No Heart Rhythm Problems: No Cancer: No Cardiovascular Problems: No Diabetes: No Diminished Hearing: No Endocrine: No Gastrointestinal Disorders: Yes Genitourinary: No Hepatitis: Yes (hepatitis C) Hypertension: Yes Immune Disorder: No Musculoskeletal: No Neurologic: No Psychiatric: Yes Reproductive: No Respiratory: Yes (asthma) Immunizations Current: Yes Pancreatitis: Yes Thyroid Disease: No Ulcer: Yes ?: Not LMP: on now : 3 Para: 1 Miscarriage: 1 : 1 Dilation and Curettage (D&C): Yes (05/2016) Past Surgical History Abdominal Surgery: Yes (PANCREATIC STENT(REMOVED), CHOLECYSTECTOMY) Cardiac Surgery: No Cholecystectomy: Yes Ear Surgery: No Endocrine Surgery: No Eye Surgery: No Genitourinary Surgery: No Gynecologic Surgery: Yes (D &C) Oral Surgery: No Thoracic Surgery: Yes (BREAST IMPLANTS) Other Surgery: Yes (breast implants, pancreatic stent ) Social History Alcohol Use: Yes Tobacco Use: Yes Substance Use: No Allergies-Medications (Allergen,Severity, Reaction): Coded Allergies: amoxicillin (Unverified Allergy, Intermediate, Rash, 12/11/16) citalopram (Unverified Allergy, Intermediate, Rash, 12/11/16) morphine (Unverified Allergy, Intermediate, Rash, 12/11/16) Reported Meds & Prescriptions Reported Meds & Active Scripts Active Proair Hfa 8.5 GM Inh (Albuterol Sulfate) 90 Mcg/Act Aer 2 Puff INH Q4-6H PRN 108 mcg/actuation Prednisone 20 Mg Tab 40 Mg PO DAILY Take 40 mg (2 tablets) daily for 5 days Azithromycin 250 Mg Tab 250 Mg PO DIRECTED Take 2 tabs (500 mg) on day 1 then 1 tab daily x 4 days. Prednisone 20 Mg Tab 20 Mg PO BID 5 Days Reported Proair Hfa 8.5 GM Inh (Albuterol Sulfate) 90 Mcg/Act Aer 2 Puff INH Q4HR PRN 108 mcg/actuation Ventolin Hfa 18 GM Inh (Albuterol Sulfate) 90 Mcg/Act Aer 2 Puff INH Q4H PRN Review of Systems Except as stated in HPI: all other systems reviewed are Neg General / Constitutional: Positive: Fever Eyes: No: Visual changes HENT: No: Headaches Cardiovascular: No: Chest Pain or Discomfort Respiratory: Positive: Cough, Wheezing Gastrointestinal: No: Abdominal Pain Genitourinary: No: Dysuria Physical Exam Narrative GENERAL: Alert well-appearing female. SKIN: Warm and dry. HEAD: Normocephalic. EYES: No injection or drainage. NECK: Supple, trachea midline. CARDIOVASCULAR: Regular rate and rhythm RESPIRATORY: Breath sounds equal bilaterally. No accessory muscle use. Faint Scattered expiratory wheezes that clears with cough. Productive rhonchorous cough while being examined GASTROINTESTINAL: Abdomen soft, non-tender, nondistended. Data Data Last Documented VS Vital Signs Date Time Temp Pulse Resp B/P (MAP) Pulse Ox O2 Delivery O2 Flow Rate FiO2 02/24/17 18:13 02/24/17 17:52 98.7 81 18 99 MDM Medical Decision Making Medical Screen Exam Complete: Yes Emergency Medical Condition: Yes Differential Diagnosis Bronchitis, pneumonia, reactive airway Narrative Course This is a 36-year-old female with productive cough and wheezing. Her vital signs are stable. She is nontoxic appearing. She will be treated with azithromycin, steroids, albuterol. Diagnosis Primary Impression: Bronchitis Additional Impression: Asthma Qualified Codes: J45.998 - Other asthma Referrals: Primary Care Physician Scripts Albuterol 8.5 GM Inh (Proair Hfa 8.5 GM Inh) 90 Mcg/Act Aer 2 PUFF INH Q4-6H Y for SHORTNESS OF BREATH, #1 INHALER 0 Refills 108 mcg/actuation Prov: Enedina Lyman STOCK PREPARATION SUPERVISOR 02/24/17 Prednisone (Prednisone) 20 Mg Tab 40 MG PO DAILY, #10 TAB 0 Refills Take 40 mg (2 tablets) daily for 5 days Prov: Enedina Lyman STOCK PREPARATION SUPERVISOR 02/24/17 Azithromycin (Azithromycin) 250 Mg Tab 250 MG PO DIRECTED for Infection, #6 TAB 0 Refills Take 2 tabs (500 mg) on day 1 then 1 tab daily x 4 days. Prov: Enedina Lyman 02/24/17 Disposition: 01 DISCHARGE HOME Condition: Stable Enedina Lyman Feb 24, 2017 18:13
[2017-03-04] MEDS ORDERED: PRED20 PO (08:50)
[2017-03-04] MEDS ORDERED: ALBUAER3 INH (08:50)
== END 2017-02-24 18:24 | disposition home or self-care (01) ==
LOC: NEPK 17:50
DX: J40 Bronchitis, not specified as acute or chronic (principal); J45.998 Other asthma; R50.9 Fever, unspecified; I10 Essential (primary) hypertension; Z86.59 Personal history of other mental and behavioral disorders; Z87.19 Personal history of other diseases of the digestive system
CPT/HCPCS: 99284

== ENCOUNTER 2017-03-04 06:26 | Emergency (ER) | payer OTHER ==
[2017-03-04] MEDS: RESP: ALBUTEROL 2.5 MG/IPRATROPIUM 0.5 MG NEB (SCH) INH ×4 (07:25→08:15)
[2017-03-04] MEDS: predniSONE 20 MG TAB PO (07:56)
== END 2017-03-04 09:00 | disposition home or self-care (01) ==
LOC: NEPC 06:26
DX: J45.901 Unspecified asthma with (acute) exacerbation (principal); F41.9 Anxiety disorder, unspecified; I10 Essential (primary) hypertension; B19.20 Unspecified viral hepatitis C without hepatic coma
CPT/HCPCS: 94640; 94664; 99284